=== PATIENT | male | born 1965 | race African-American/Black ===

== ENCOUNTER 2018-06-27 13:53 | Inpatient (IN) | payer OTHER ==
[2018-06-27 18:25] VITALS: BMI 26.5
--- NOTE | 2018-06-27 20:22 | HP ---
CIWA Score - CIWA Score Nausea/Vomitin-Mild Nausea/No Vomiting Muscle Tremors: 4-Moderate,w/Arms Extend Anxiety: 3 Agitation: 3 Paroxysmal Sweats: 1-Minimal Palms Moist Orientation: 2-Disoriented Date<2 days Tacttile Disturbances: 0-None Auditory Disturbances: 0-None Visual Disturbances: 0-None Headache: 2-Mild CIWA-Ar Total Score: 16 Admission ROS S - HPI Chief Complaint: Alcohol withdrawal symptoms Allergies/Adverse Reactions: Allergies Allergy/AdvReac Type Severity Reaction Status Date / Time No Known Drug Allergies Allergy Verified 02/22/14 17:26 History of Present Illness: 53 years old male with a long history of alcohol dependence is seeking admission to detox. Patient has been in previous detox, last at [facility]. He has medical history of hypertension, TB (treated), depression and anxiety. He denies suicide attempt or suicidal ideation at this time. Exam Limitations: No Limitations - Ebola screening Have you traveled outside of the country in the last 21 days: No Have you had contact with anyone from an Ebola affected area: No Do you have a fever: No - Review of Systems Constitutional: Chills, Loss of Appetite, Malaise, Changes in sleep EENT: reports: No Symptoms Reported Respiratory: reports: No Symptoms reported, Productive cough GI: reports: No Symptoms Reported : reports: No Symptoms Reported Musculoskeletal: reports: No Symptoms Reported Integumentary: reports: Dryness Neuro: reports: Tremors Endocrine: reports: No Symptoms Reported, Unexplained Weight Loss Psychiatric: reports: Anxious, Depressed Other Systems: Reviewed and Negative Patient History - Patient Medical History Hx Anemia: No Hx Asthma: No Hx Chronic Obstructive Pulmonary Disease (COPD): No Hx Cancer: No Hx Cardiac Disorders: No Hx Congestive Heart Failure: No Hx Hypertension: Yes (Not on medication) Hx Hypercholesterolemia: No Hx Pacemaker: No HX Cerebrovascular Accident: No Hx Seizures: No Hx Dementia: No Hx Diabetes: No Hx Gastrointestinal Disorders: No Hx Liver Disease: No Hx Genitourinary Disorders: No Hx Sexually Transmitted Disorders: No Hx Renal Disease (ESRD): No Hx Thyroid Disease: No Hx Human Immunodeficiency Virus (HIV): No Hx Hepatitis C: No Hx Depression: Yes (Not on medication) Hx Suicide Attempt: No (Denies suicidal ideation at this time) Hx Bipolar Disorder: No Hx Schizophrenia: No Other Medical History: Anxiety - Not on medication - Patient Surgical History Past Surgical History: Yes Hx Neurologic Surgery: No Hx Cataract Extraction: No Hx Cardiac Surgery: No Hx Lung Surgery: No Hx Abdominal Surgery: No Hx Appendectomy: No Hx Cholecystectomy: No Hx Genitourinary Surgery: No Hx Section: No Hx Orthopedic Surgery: No Other Surgical History: Umbilical hernia repair-2013 Anesthesia Reaction: No - PPD History Previous Implant?: Yes (INH and B16 for TB) Documented Results: Positive w/proof PPD to be Administered?: No - Reproductive History Patient is a Female of Child Bearing Age (11 -55 yrs old): No (Male) - Smoking Cessation Smoking history: Current every day smoker Have you smoked in the past 12 months: Yes Aproximately how many cigarettes per day: 20 Hx Chewing Tobacco Use: No Initiated information on smoking cessation: Yes 'Breaking Loose' booklet given: 06/27/18 - Substance & Tx. History Hx Alcohol Use: Yes Hx Substance Use: Yes Substance Use Type: Alcohol, Cocaine Hx Substance Use Treatment: Yes ([facility] - Substances Abused Alcohol Route: Oral Frequency: Daily Amount used: liquor- 4 pints, beer- 1 six pack Age of first use: 13 Date of Last Use: 06/27/18 Crack Route: Smoking Frequency: Daily Amount used: $80 worth Age of first use: 16 Date of Last Use: 06/26/18 Family Disease History - Family Disease History Family History: Denies Admission Physical Exam [facility] - Vital Signs Vital Signs: Vital Signs - 24 hr 06/27/18 18:11 Temperature 96.9 F L Pulse Rate 72 Respiratory 18 Rate Blood Pressure 150/100 - Physical General Appearance: Yes: Moderate Distress, Tremorous, Irritable, Sweating, Anxious HEENTM: Yes: EOMI, Normal ENT Inspection, Normocephalic, Normal Voice, BINH Respiratory: Yes: Lungs Clear, Normal Breath Sounds, No Respiratory Distress Neck: Yes: Supple Breast: Yes: Breast Exam Deferred Cardiology: Yes: Regular Rhythm, Regular Rate Abdominal: Yes: Normal Bowel Sounds Genitourinary: Yes: Within Normal Limits Back: Yes: Normal Inspection Musculoskeletal: Yes: Within Normal Limits Extremities: Yes: Tremors Neurological: Yes: psychiatric arnp II-XII NML intact, Alert, Normal Mood/Affect Integumentary: Yes: Warm Lymphatic: Yes: Within Normal Limits - Diagnostic (1) Alcohol dependence with uncomplicated withdrawal Current Visit: Yes Status: Chronic (2) Hypertension Current Visit: Yes Status: Chronic Qualifiers: Hypertension type: essential hypertension Qualified Code(s): I10 - Essential (primary) hypertension (3) Depression Current Visit: Yes Status: Chronic Qualifiers: Depression Type: unspecified Qualified Code(s): F32.9 - Major depressive disorder, single episode, unspecified (4) Anxiety Current Visit: Yes Status: Chronic (5) Cocaine dependence Current Visit: Yes Status: Chronic Qualifiers: Substance use status: uncomplicated Qualified Code(s): F14.20 - Cocaine dependence, uncomplicated (6) Nicotine dependence Current Visit: Yes Status: Chronic Qualifiers: Nicotine product type: cigarettes Substance use status: uncomplicated Qualified Code(s): F17.210 - Nicotine dependence, cigarettes, uncomplicated (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
[2018-06-27] MEDS ORDERED: NICOTINE POLACRILEX 2 MG GUM BC PRN (20:30)
[2018-06-27] MEDS ORDERED: MENTHOL/PHENOL 1 EACH UD MM PRN (20:30)
[2018-06-27] MEDS ORDERED: ACETAMINOPHEN 325 MG TABLET (FP) PO PRN (20:30)
[2018-06-27] MEDS ORDERED: MAG HYDROX/AL HYDROX/SIMETH 30 ML UNIT-DOSE CUP PO PRN (20:30)
[2018-06-27] MEDS ORDERED: P-EPHED 60MG/TRIPROLIDI 2.5MG TABLET PO PRN (20:30)
[2018-06-27] MEDS ORDERED: guaiFENesin/D-METHORPHAN HB 10 ML UNIT-DOSE CUPS PO PRN (20:30)
[2018-06-27] MEDS ORDERED: LOPERAMIDE HCL 2 MG CAPSULE PO PRN (20:30)
[2018-06-27] MEDS ORDERED: MAGNESIUM CITRATE 300 ML BOTTLE PO PRN (20:30)
[2018-06-27] MEDS ORDERED: chlordiazePOXIDE HCL 25 MG CAPSULE PO PRN (20:30)
[2018-06-27] MEDS ORDERED: MAGNESIUM HYDROX 2400MG/30ML ORAL SUSPENSION 30 ML CUP PO PRN (20:30)
[2018-06-27] MEDS ORDERED: IBUPROFEN 400 MG TABLET (FP) PO PRN (20:30)
[2018-06-27] MEDS: amLODIPine BESYLATE 10 MG TABLET (FP) PO SCH (21:24)
[2018-06-27] MEDS: THIAMINE HCL 100 MG TABLET (FP) PO SCH (21:25)
[2018-06-27] MEDS ORDERED: MELATONIN 5 MG TABLETS PO PRN (22:00)
[2018-06-27] MEDS: chlordiazePOXIDE HCL 25 MG CAPSULE PO SCH (22:23)
[2018-06-27 23:54] LABS: URINE APPEARANCE CLEAR; URINE BILIRUBIN NEGATIVE (<2.0 mg/dL); URINE COLOR LTYELLOW; URINE GLUCOSE (UA) 1+ (NEGATIVE); URINE KETONE NEGATIVE (NEGATIVE); URINE LEUK ESTERASE NEGATIVE (NEGATIVE); URINE NITRITE NEGATIVE (NEGATIVE); URINE PROTEIN NEGATIVE (NEGATIVE); URINE UROBILINOGEN NEGATIVE mg/dL (0.2-1.0)
[2018-06-28] MEDS: chlordiazePOXIDE HCL 25 MG CAPSULE PO SCH ×4 (06:18→22:48)
[2018-06-28 10:26] LABS: HEMATOCRIT 44.4 % (35.4-49); HEMOGLOBIN 14.2 GM/dL (11.7-16.9); MCH 30.1 pg (25.7-33.7); MEAN CELL VOLUME 94.1 fl (80-96); MEAN PLT VOLUME 8.4 fl (7.5-11.1); PLATELET COUNT 199 K/MM3 (134-434); RBC 4.72 M/mm3 (4.00-5.60); RDW 13.4 % (11.9-15.9); WHITE BLOOD COUNT 4.3 K/mm3 (4.0-10.0)
[2018-06-28] MEDS: PRENATAL VITAMINS W/ FOLIC ACID TABLET (FP) PO SCH (10:45)
[2018-06-28] MEDS: amLODIPine BESYLATE 10 MG TABLET (FP) PO SCH (10:45)
[2018-06-28] MEDS: NICOTINE 14 MG/24 HOURS TOPICAL PATCH TD SCH (10:45)
[2018-06-28 10:49] LABS: ALK PHOS 62 U/L (45-117); ANION GAP 7 MMOL/L (8-16); BILIRUBIN,TOTAL 0.4 mg/dL (0.2-1); BLOOD UREA NITROGEN 16 mg/dL (7-18); CALCIUM 8.5 mg/dL (8.5-10.1); CHLORIDE 110 mmol/L (98-107); CO2 25 mmol/L (21-32); GLUCOSE,RANDOM 126 mg/dL (74-106); POTASSIUM 3.7 mmol/L (3.5-5.1); SGOT/AST 22 U/L (15-37); SGPT/ALT 54 U/L (13-61); SODIUM 142 mmol/L (136-145); TOT PROT 6.5 g/dl (6.4-8.2)
--- NOTE | 2018-06-28 13:00 | EKG ---
Test Reason : Blood Pressure : / mmHG Vent. Rate : 062 BPM Atrial Rate : 062 BPM P-R Int : 146 ms QRS Dur : 076 ms QT Int : 414 ms P-R-T Axes : 055 037 015 degrees QTc Int : 420 ms NORMAL SINUS RHYTHM NORMAL ECG Confirmed by MD CHRISTIANO, DAVE ([id number]) on 06/28/2018 12:59:57 PM Referred By: Confirmed By:DAVE ALVARADO MD
--- NOTE | 2018-06-28 13:15 | PN ---
[facility] CIWA - CIWA Score Nausea/Vomitin Muscle Tremors: 4-Moderate,w/Arms Extend Anxiety: 4-Mod. Anxious/Guarded Agitation: 3 Paroxysmal Sweats: 3 Orientation: 0-Oriented Tacttile Disturbances: 0-None Auditory Disturbances: 0-None Visual Disturbances: 0-None Headache: 0-None Present CIWA-Ar Total Score: 17 S Progress Note (SOAP) Subjective: Tremor, chills, sweating, interrupted sleep Objective: 06/28/18 13:10 Last Vital Signs Temp Pulse Resp BP Pulse Ox 98.4 F 55 L 18 128/71 06/28/18 09:42 06/28/18 09:42 06/28/18 09:42 06/28/18 09:42 Laboratory Tests 06/27/18 06/28/18 06/28/18 22:22 07:30 07:30 WBC 4.3 RBC 4.72 Hgb 14.2 Hct 44.4 MCV 94.1 MCH 30.1 MCHC 32.0 RDW 13.4 Plt Count 199 MPV 8.4 Sodium Potassium Chloride Carbon Dioxide Anion Gap BUN Creatinine Creat Clearance w eGFR Random Glucose Calcium Total Bilirubin AST ALT Alkaline Phosphatase Total Protein Albumin Urine Color Ltyellow Urine Appearance Clear Urine pH 5.0 Ur Specific [place] 1.018 Urine Protein Negative Urine Glucose (UA) 1+ H Urine Ketones Negative Urine Blood Negative Urine Nitrite Negative Urine Bilirubin Negative Urine Urobilinogen Negative Ur Leukocyte Esterase Negative RPR Titer HIV 1&2 Antibody Screen Negative HIV P24 Antigen Negative 06/28/18 06/28/18 07:30 07:30 WBC RBC Hgb Hct MCV MCH MCHC RDW Plt Count MPV Sodium 142 Potassium 3.7 Chloride 110 H Carbon Dioxide 25 Anion Gap 7 L BUN 16 Creatinine 1.0 Creat Clearance w eGFR > 60 Random Glucose 126 H Calcium 8.5 Total Bilirubin 0.4 AST 22 ALT 54 Alkaline Phosphatase 62 Total Protein 6.5 Albumin 3.0 L Urine Color Urine Appearance Urine pH Ur Specific [place] Urine Protein Urine Glucose (UA) Urine Ketones Urine Blood Urine Nitrite Urine Bilirubin Urine Urobilinogen Ur Leukocyte Esterase RPR Titer Nonreactive HIV 1&2 Antibody Screen HIV P24 Antigen Labs reviewed: serum glucose 126, UA 1+ glucose Assessment: 06/28/18 13:13 Withdrawal symptoms Noted with glycosuria and hyperglycemia Plan: Continue detox Glycosuria: encouraged PO water intake, repeat UA Hyperglycemia: repeat fasting glucose
[2018-06-28] MEDS: THIAMINE HCL 100 MG TABLET (FP) PO SCH (22:48)
[2018-06-29] MEDS: chlordiazePOXIDE HCL 25 MG CAPSULE PO SCH ×2 (05:57→10:43)
[2018-06-29 10:30] VITALS: BP 126/74; PULSE 70; TEMP 98.9
[2018-06-29] MEDS: NICOTINE 14 MG/24 HOURS TOPICAL PATCH TD SCH (10:43)
[2018-06-29] MEDS: amLODIPine BESYLATE 10 MG TABLET (FP) PO SCH (10:43)
[2018-06-29] MEDS: PRENATAL VITAMINS W/ FOLIC ACID TABLET (FP) PO SCH (10:43)
--- NOTE | 2018-06-29 11:21 | DS ---
[facility] Detox Discharge Summary Admission Date: 06/27/18 Discharge Date: 06/29/18 - History Present History: Alcohol Dependence - Physical Exam Results Vital Signs: Vital Signs Temperature 98.9 F 06/29/18 10:00 Pulse Rate 70 06/29/18 10:00 Respiratory Rate 18 06/29/18 10:00 Blood Pressure 126/74 06/29/18 10:00 O2 Sat by Pulse Oximetry (%) Pertinent Admission Physical Exam Findings: PATIENT REQUESTED TO SIGN OUT AMA. PATIENT ALERT AND ORIENTED X 3. SKIN WARM AND WITH BEADS OF SWEAT OF FOREHEAD. AMB AD STEPHANI, IRRITABLE AND PACING ON UNIT. PATIENT ENCOURAGED TO COMPLETE DETOX BUT REFUSED, PATIENT STATED " I HAVE BEEN HERE TOO LONG." PATIENT DENIES SI/HI AND EXPLAINED RISK FACTORS OF RELAPSE AND WITH SIGNING OUT. PATIENT ENCOURAGED TO ATTEND AA AND GO TO ER IF WITHDRAWAL SX OCCUR. - Medication Discharge Medications: Ambulatory Orders Amlodipine Besylate [Norvasc -] 10 mg PO DAILY 06/27/18 - AMA Did Patient Leave Against Medical Advice: Yes
[2018-06-29] MEDS ORDERED: chlordiazePOXIDE 5 MG CAPSULE PO SCH (23:00)
[2018-06-30] MEDS ORDERED: chlordiazePOXIDE HCL 10 MG CAPSULE PO SCH (23:00)
== END 2018-06-29 10:39 | disposition left against medical advice (07) | DRG 770 ==
LOC: YASAS 13:53 → Y3N 17:28
PROC: HZ2ZZZZ Detoxification Services for Substance Abuse Treatment (ICD-10-PCS; principal; 2018-06-27)
DX: F10.230 Alcohol dependence with withdrawal, uncomplicated (principal); F14.20 Cocaine dependence, uncomplicated; F17.210 Nicotine dependence, cigarettes, uncomplicated; F41.9 Anxiety disorder, unspecified; F32.9 Major depressive disorder, single episode, unspecified; I10 Essential (primary) hypertension; R81 Glycosuria; R73.9 Hyperglycemia, unspecified; R76.11 Nonspecific reaction to tuberculin skin test without active tuberculosis
CPT/HCPCS: 36415; 71046-TC-FY; 80053; 81003; 85027; 86593; 87389; 93005; 93010

== ENCOUNTER 2018-08-01 23:02 | Inpatient (IN) | payer OTHER ==
[~2018-08-01 23:02] MED LIST: MELATONIN 5 MG TABLETS PO PRN
--- NOTE | 2018-08-01 23:33 | HP ---
CIWA Score Nausea/Vomitin-No Nausea/No Vomiting Muscle Tremors: 4-Moderate,w/Arms Extend Anxiety: 4-Mod. Anxious/Guarded Agitation: 4-Moderately Restless Paroxysmal Sweats: No Perspiration Orientation: 3-Disoriented Date>2 days Tacttile Disturbances: 0-None Auditory Disturbances: 0-None Visual Disturbances: 0-None Headache: 0-None Present CIWA-Ar Total Score: 15 - Admission Criteria [facility]ASAS Guidelines: Admission for Medically Managed Detox: Requires at least one of the followin. CIWA greater than 12 2. Seizures within the past 24 hours 3. Delirium tremens within the past 24 hours 4. Hallucinations within the past 24 hours 5. Acute intervention needed for co occurring medical disorder 6. Acute intervention needed for co occurring psychiatric disorder 7. Severe withdrawal that cannot be handled at a lower level of care (continued vomiting, continued diarrhea, abnormal vital signs) requiring intravenous medication and/or fluids 8. Patient presents the following: CIWA greater than 12 Admission Criteria Met: Admission criteria met Admission ROS [facility] - [facility] Chief Complaint: SEEKING DETOX FOR C/O WITHDRAWAL SX'S FROM ALCOHOL Allergies/Adverse Reactions: Allergies Allergy/AdvReac Type Severity Reaction Status Date / Time No Known Drug Allergies Allergy Verified 08/01/18 23:33 History of Present Illness: 53 Y.O. MALE WITH HX/O ALCOHOLISM HERE FOR DETOX. CLIENT WAS REFERRED BY [facility] AFTER PRESENTING THERE WITH INTOXICATION. NOW WITH C/O WITHDRAWAL SX' S. CIWA 15. CLIENT IS KNOWN TO THIS PROGRAM. LAST HERE 06/29/2018. HE HAS A HX/ O SIGNING OUT THE LAST 3 ADMISSIONS AFTER A 48 HOUR STAY. D/W CLIENT ABOUT COMPLIANCE AND ADHERENCE. CLIENT VOICED THAT HE NEEDS THE HELP AND WILL COMPLETE HIS TXMENT. REPORTS LONGEST CLEAN TIME 9 MONTHS. DENIES ANY CLEAN TIME IN HE PAST YEAR. DENIES HX/O SEIZURES, SI/HI, AVH. PMHX- HTN, HX/O + PPD NEG CXR NOTED ON FILE DONE 06/2018 PSYCH- DENIES/ [facility] Exam Limitations: No Limitations - Ebola screening Have you traveled outside of the country in the last 21 days: No Have you had contact with anyone from an Ebola affected area: No Have you been sick,other than usual withdrawal symptoms: No Do you have a fever: No - Review of Systems Constitutional: No Symptoms Reported EENT: reports: No Symptoms Reported Respiratory: reports: No Symptoms reported Cardiac: reports: No Symptoms Reported GI: reports: Poor Fluid Intake : reports: No Symptoms Reported Musculoskeletal: reports: No Symptoms Reported Integumentary: reports: No Symptoms Reported Endocrine: reports: No Symptoms Reported Hematology: reports: No Symptoms Reported Psychiatric: reports: Agitated (IRRITABLE), Anxious Other Systems: Reviewed and Negative Patient History - Patient Medical History Hx Anemia: No Hx Asthma: No Hx Chronic Obstructive Pulmonary Disease (COPD): No Hx Cancer: No Hx Cardiac Disorders: No Hx Congestive Heart Failure: No Hx Hypertension: Yes (NORVASC) Hx Hypercholesterolemia: No Hx Pacemaker: No HX Cerebrovascular Accident: No Hx Seizures: No Hx Dementia: No Hx Diabetes: No Hx Gastrointestinal Disorders: No Hx Liver Disease: No Hx Genitourinary Disorders: No Hx Sexually Transmitted Disorders: No Hx Renal Disease (ESRD): No Hx Thyroid Disease: No Hx Human Immunodeficiency Virus (HIV): No Hx Hepatitis C: No Hx Depression: No Hx Suicide Attempt: No Hx Bipolar Disorder: No Hx Schizophrenia: No Other Medical History: DENIES - Patient Surgical History Past Surgical History: Yes Hx Neurologic Surgery: No Hx Cataract Extraction: No Hx Cardiac Surgery: No Hx Lung Surgery: No Hx Breast Surgery: No Hx Breast Biopsy: No Hx Abdominal Surgery: No Hx Appendectomy: No Hx Cholecystectomy: No Hx Genitourinary Surgery: No Hx Section: No Hx Orthopedic Surgery: No Other Surgical History: Umbilical hernia repair-2013 Anesthesia Reaction: No - PPD History Previous Implant?: Yes Documented Results: Positive w/o proof Implanted On Prior [facility] Admission?: No Results: CXR 06/2018 PPD to be Administered?: No - Smoking Cessation Smoking history: Current every day smoker Have you smoked in the past 12 months: Yes Aproximately how many cigarettes per day: 20 Cigars Per Day: 0 Hx Chewing Tobacco Use: No Initiated information on smoking cessation: Yes 'Breaking Loose' booklet given: 08/01/18 - Substance & Tx. History Hx Alcohol Use: Yes Hx Substance Use: Yes Substance Use Type: Alcohol Hx Substance Use Treatment: Yes ([facility]) - Substances Abused VODKA Route: Oral Frequency: Daily Amount used: 4 PINTS Age of first use: 13 Date of Last Use: 08/01/18 Family Disease History - Family Disease History Family History: Denies Admission Physical Exam [facility] - Physical General Appearance: Yes: Mild Distress, Alcohol on Breath, Tremorous, Irritable , Anxious, Other (DISHELEVD AND MALODUROUS) HEENTM: Yes: EOMI, Normocephalic, BINH, Pharynx Normal Respiratory: Yes: Chest Non-Tender, Lungs Clear, Normal Breath Sounds, No Respiratory Distress, No Accessory Muscle Use Neck: Yes: No masses,lesions,Nodules, Supple, Trachea in good position Breast: Yes: Breast Exam Deferred Cardiology: Yes: Regular Rhythm, Regular Rate, S1, S2 Abdominal: Yes: Normal Bowel Sounds, Non Tender, Soft, Protuberent Genitourinary: Yes: Within Normal Limits (NO C/O) Back: Yes: Normal Inspection Musculoskeletal: Yes: full range of Motion, Gait Steady Extremities: Yes: Normal Range of Motion, Non-Tender, Tremors Neurological: Yes: Alert, Motor Strength 5/5 Integumentary: Yes: Dry, Warm Lymphatic: Yes: Within Normal Limits - Diagnostic (1) History of positive PPD Current Visit: Yes Status: Chronic (2) Substance induced mood disorder Current Visit: Yes Status: Suspected (3) Alcohol dependence with uncomplicated withdrawal Current Visit: Yes Status: Acute (4) Hypertension Current Visit: Yes Status: Chronic Qualifiers: Hypertension type: essential hypertension Qualified Code(s): I10 - Essential (primary) hypertension (5) Nicotine dependence Current Visit: Yes Status: Chronic Qualifiers: Nicotine product type: cigarettes Substance use status: uncomplicated Qualified Code(s): F17.210 - Nicotine dependence, cigarettes, uncomplicated (6) At risk for dehydration due to poor fluid intake Current Visit: Yes Status: Acute Cleared for Admission [facility] - Detox or Rehab [facility] Level of Care: Medically Managed Detox Regimen/Protocol: Librium Claeared for Rehab Admission: No [facility] Breath Alcohol Content Breath Alcohol Content: 0.016
[2018-08-01] MEDS ORDERED: ACETAMINOPHEN 325 MG TABLET (FP) PO PRN (23:40)
[2018-08-01] MEDS ORDERED: guaiFENesin/D-METHORPHAN HB 10 ML UNIT-DOSE CUPS PO PRN (23:40)
[2018-08-01] MEDS ORDERED: P-EPHED 60MG/TRIPROLIDI 2.5MG TABLET PO PRN (23:40)
[2018-08-01] MEDS ORDERED: MAG HYDROX/AL HYDROX/SIMETH 30 ML UNIT-DOSE CUP PO PRN (23:40)
[2018-08-01] MEDS ORDERED: MENTHOL/PHENOL 1 EACH UD MM PRN (23:40)
[2018-08-01] MEDS ORDERED: MAGNESIUM CITRATE 300 ML BOTTLE PO PRN (23:40)
[2018-08-01] MEDS ORDERED: MAGNESIUM HYDROX 2400MG/30ML ORAL SUSPENSION 30 ML CUP PO PRN (23:40)
[2018-08-01] MEDS ORDERED: IBUPROFEN 400 MG TABLET (FP) PO PRN (23:40)
[2018-08-01] MEDS ORDERED: hydrOXYzine PAMOATE 50 MG CAPSULE (FP) PO PRN (23:40)
[2018-08-01] MEDS ORDERED: LOPERAMIDE HCL 2 MG CAPSULE PO PRN (23:40)
[2018-08-01] MEDS ORDERED: NICOTINE POLACRILEX 2 MG GUM BUC PRN (23:40)
[2018-08-01] MEDS ORDERED: chlordiazePOXIDE HCL 25 MG CAPSULE PO PRN (23:40)
[2018-08-01 23:45] VITALS: BMI 26.5
[2018-08-02] MEDS: chlordiazePOXIDE HCL 25 MG CAPSULE PO SCH ×5 (01:16→22:45)
[2018-08-02] MEDS ORDERED: cloNIDine HCL 0.1 MG TABLET PO ONE (01:34)
[2018-08-02 10:19] LABS: HEMATOCRIT 39.9 % (35.4-49); HEMOGLOBIN 12.9 GM/dL (11.7-16.9); MCH 30.1 pg (25.7-33.7); MCHC 32.3 g/dl (32.0-35.9); PLATELET COUNT 202 K/MM3 (134-434); RBC 4.29 M/mm3 (4.00-5.60); RDW 13.8 % (11.9-15.9); WHITE BLOOD COUNT 5.8 K/mm3 (4.0-10.0)
--- NOTE | 2018-08-02 10:22 | PN ---
S CIWA - CIWA Score Nausea/Vomitin-No Nausea/No Vomiting Muscle Tremors: 4-Moderate,w/Arms Extend Anxiety: 3 Agitation: 4-Moderately Restless Paroxysmal Sweats: 3 Orientation: 0-Oriented Tacttile Disturbances: 0-None Auditory Disturbances: 0-None Visual Disturbances: 0-None Headache: 0-None Present CIWA-Ar Total Score: 14 [facility] Progress Note (SOAP) Subjective: restless body aches agitation sweats interrupted sleep Objective: 08/02/18 10:21 Vital Signs Temperature 98.1 F 08/02/18 09:21 Pulse Rate 65 08/02/18 09:21 Respiratory Rate 18 08/02/18 09:21 Blood Pressure 140/89 08/02/18 09:21 O2 Sat by Pulse Oximetry (%) labs pending aaox3 ambulating no acute distress Assessment: 08/02/18 10:21 withdrawal sx Plan: continue detox increase fluids labs pending
[2018-08-02] MEDS: amLODIPine BESYLATE 10 MG TABLET (FP) PO SCH (10:28)
[2018-08-02] MEDS: PRENATAL VITAMINS W/ FOLIC ACID TABLET (FP) PO SCH (10:28)
[2018-08-02] MEDS: NICOTINE 21 MG/24 HOURS TOPICAL PATCH TD SCH (10:28)
[2018-08-02 10:40] LABS: ALBUMIN 2.7 g/dl (3.4-5.0); ALK PHOS 77 U/L (45-117); ANION GAP 9 MMOL/L (8-16); BILIRUBIN,TOTAL 0.5 mg/dL (0.2-1); BLOOD UREA NITROGEN 15 mg/dL (7-18); CALCIUM 8.3 mg/dL (8.5-10.1); CHLORIDE 104 mmol/L (98-107); CO2 28 mmol/L (21-32); CREATININE 1.1 mg/dL (0.55-1.3); GLUCOSE,RANDOM 155 mg/dL (74-106); POTASSIUM 3.5 mmol/L (3.5-5.1); SGOT/AST 28 U/L (15-37); SGPT/ALT 51 U/L (13-61); SODIUM 141 mmol/L (136-145); TOT PROT 6.2 g/dl (6.4-8.2)
[2018-08-02 11:00] LABS: URINE APPEARANCE CLEAR; URINE BILIRUBIN NEGATIVE (<2.0 mg/dL); URINE COLOR LTYELLOW; URINE GLUCOSE (UA) NEGATIVE (NEGATIVE); URINE KETONE NEGATIVE (NEGATIVE); URINE LEUK ESTERASE NEGATIVE (NEGATIVE); URINE NITRITE NEGATIVE (NEGATIVE); URINE PROTEIN NEGATIVE (NEGATIVE); URINE UROBILINOGEN NEGATIVE mg/dL (0.2-1.0)
[2018-08-02] MEDS: THIAMINE HCL 100 MG TABLET (FP) PO SCH (22:46)
[2018-08-03] MEDS: chlordiazePOXIDE HCL 25 MG CAPSULE PO SCH ×3 (05:18→18:22)
[2018-08-03] MEDS: amLODIPine BESYLATE 10 MG TABLET (FP) PO SCH (10:24)
[2018-08-03] MEDS: PRENATAL VITAMINS W/ FOLIC ACID TABLET (FP) PO SCH (10:24)
[2018-08-03] MEDS: NICOTINE 21 MG/24 HOURS TOPICAL PATCH TD SCH (10:26)
--- NOTE | 2018-08-03 11:26 | PN ---
[facility] CIWA - CIWA Score Nausea/Vomitin-Mild Nausea/No Vomiting Muscle Tremors: 3 Anxiety: 2 Agitation: 2 Paroxysmal Sweats: 1-Minimal Palms Moist Orientation: 0-Oriented Tacttile Disturbances: 1-Very Mild Itch/Numbness Auditory Disturbances: 0-None Visual Disturbances: 0-None Headache: 1-Very Mild CIWA-Ar Total Score: 11 S Progress Note (SOAP) Subjective: one time bgm before breakfast as per paraffiner requested tremor sweat anxiety trouble sleep at night Objective: 08/03/18 11:28 Vital Signs Temperature 98.1 F 08/03/18 09:12 Pulse Rate 71 08/03/18 09:12 Respiratory Rate 18 08/03/18 09:12 Blood Pressure 130/85 08/03/18 09:12 O2 Sat by Pulse Oximetry (%) Laboratory Last Values WBC 5.8 K/mm3 (4.0-10.0) 08/02/18 07:00 RBC 4.29 M/mm3 (4.00-5.60) 08/02/18 07:00 Hgb 12.9 GM/dL (11.7-16.9) 08/02/18 07:00 Hct 39.9 % (35.4-49) 08/02/18 07:00 MCV 93.0 fl (80-96) 08/02/18 07:00 MCH 30.1 pg (25.7-33.7) 08/02/18 07:00 MCHC 32.3 g/dl (32.0-35.9) 08/02/18 07:00 RDW 13.8 % (11.9-15.9) 08/02/18 07:00 Plt Count 202 K/MM3 (134-434) 08/02/18 07:00 MPV 8.0 fl (7.5-11.1) 08/02/18 07:00 Sodium 141 mmol/L (136-145) 08/02/18 07:00 Potassium 3.5 mmol/L (3.5-5.1) 08/02/18 07:00 Chloride 104 mmol/L (98-107) 08/02/18 07:00 Carbon Dioxide 28 mmol/L (21-32) 08/02/18 07:00 Anion Gap 9 MMOL/L (8-16) 08/02/18 07:00 BUN 15 mg/dL (7-18) 08/02/18 07:00 Creatinine 1.1 mg/dL (0.55-1.3) 08/02/18 07:00 Creat Clearance w eGFR > 60 (>60) 08/02/18 07:00 Random Glucose 155 mg/dL (74-106) H 08/02/18 07:00 Calcium 8.3 mg/dL (8.5-10.1) L 08/02/18 07:00 Total Bilirubin 0.5 mg/dL (0.2-1) 08/02/18 07:00 AST 28 U/L (15-37) 08/02/18 07:00 ALT 51 U/L (13-61) 08/02/18 07:00 Alkaline Phosphatase 77 U/L (45-117) 08/02/18 07:00 Total Protein 6.2 g/dl (6.4-8.2) L 08/02/18 07:00 Albumin 2.7 g/dl (3.4-5.0) L 08/02/18 07:00 Urine Color Ltyellow 08/02/18 07:00 Urine Appearance Clear 08/02/18 07:00 Urine pH 6.0 (5.0-8.0) 08/02/18 07:00 Ur Specific [place] 1.013 (1.010-1.035) 08/02/18 07:00 Urine Protein Negative (NEGATIVE) 08/02/18 07:00 Urine Glucose (UA) Negative (NEGATIVE) 08/02/18 07:00 Urine Ketones Negative (NEGATIVE) 08/02/18 07:00 Urine Blood Negative (NEGATIVE) 08/02/18 07:00 Urine Nitrite Negative (NEGATIVE) 08/02/18 07:00 Urine Bilirubin Negative (<2.0 mg/dL) 08/02/18 07:00 Urine Urobilinogen Negative mg/dL (0.2-1.0) 08/02/18 07:00 Ur Leukocyte Esterase Negative (NEGATIVE) 08/02/18 07:00 RPR Titer Nonreactive (NONREACTIVE) 08/02/18 07:00 HIV 1&2 Antibody Screen Negative 08/02/18 07:00 HIV P24 Antigen Negative 08/02/18 07:00 lab noted bgm x 1 at 11/29/18 A1C Assessment: 11/28/18 11:29 withdrawal sx Plan: continue detox
[2018-08-03] MEDS: chlordiazePOXIDE 5 MG CAPSULE PO SCH (23:17)
[2018-08-03] MEDS: THIAMINE HCL 100 MG TABLET (FP) PO SCH (23:17)
[2018-08-04] MEDS: chlordiazePOXIDE 5 MG CAPSULE PO SCH ×2 (06:59→08:52)
--- NOTE | 2018-08-04 08:46 | DS ---
[facility] Detox Discharge Summary Admission Date: 08/01/18 Discharge Date: 08/04/18 - History Present History: Alcohol Dependence Additional Comments: 53 years old male admitted on 08/01/18 for alcohol withdrawal sx patient stated that he is feeling better [facility] withdrawal sx alert oriented x 3 no acute distress denies suicidal denies homocidal no self destructive behavior patient had breakfast and wants to visit his primary care physician for hypertension follow up - Physical Exam Results Vital Signs: Vital Signs Temperature 97.7 F 08/04/18 07:01 Pulse Rate 55 L 08/04/18 07:01 Respiratory Rate 18 08/04/18 07:01 Blood Pressure 143/92 08/04/18 07:01 O2 Sat by Pulse Oximetry (%) Pertinent Admission Physical Exam Findings: alcohol withdrawal sx Vital Signs Temperature 95.5 F L 08/04/18 09:53 Pulse Rate 90 08/04/18 09:53 Respiratory Rate 18 08/04/18 09:53 Blood Pressure 134/103 H 08/04/18 09:53 O2 Sat by Pulse Oximetry (%) Laboratory Last Values WBC 5.8 K/mm3 (4.0-10.0) 08/02/18 07:00 RBC 4.29 M/mm3 (4.00-5.60) 08/02/18 07:00 Hgb 12.9 GM/dL (11.7-16.9) 08/02/18 07:00 Hct 39.9 % (35.4-49) 08/02/18 07:00 MCV 93.0 fl (80-96) 08/02/18 07:00 MCH 30.1 pg (25.7-33.7) 08/02/18 07:00 MCHC 32.3 g/dl (32.0-35.9) 08/02/18 07:00 RDW 13.8 % (11.9-15.9) 08/02/18 07:00 Plt Count 202 K/MM3 (134-434) 08/02/18 07:00 MPV 8.0 fl (7.5-11.1) 08/02/18 07:00 Sodium 141 mmol/L (136-145) 08/02/18 07:00 Potassium 3.5 mmol/L (3.5-5.1) 08/02/18 07:00 Chloride 104 mmol/L (98-107) 08/02/18 07:00 Carbon Dioxide 28 mmol/L (21-32) 08/02/18 07:00 Anion Gap 9 MMOL/L (8-16) 08/02/18 07:00 BUN 15 mg/dL (7-18) 08/02/18 07:00 Creatinine 1.1 mg/dL (0.55-1.3) 08/02/18 07:00 Creat Clearance w eGFR > 60 (>60) 08/02/18 07:00 POC Glucometer 129 UNITS (80-120) 08/04/18 06:55 Random Glucose 155 mg/dL (74-106) H 08/02/18 07:00 Calcium 8.3 mg/dL (8.5-10.1) L 08/02/18 07:00 Total Bilirubin 0.5 mg/dL (0.2-1) 08/02/18 07:00 AST 28 U/L (15-37) 08/02/18 07:00 ALT 51 U/L (13-61) 08/02/18 07:00 Alkaline Phosphatase 77 U/L (45-117) 08/02/18 07:00 Total Protein 6.2 g/dl (6.4-8.2) L 08/02/18 07:00 Albumin 2.7 g/dl (3.4-5.0) L 08/02/18 07:00 Urine Color Ltyellow 08/02/18 07:00 Urine Appearance Clear 08/02/18 07:00 Urine pH 6.0 (5.0-8.0) 08/02/18 07:00 Ur Specific [place] 1.013 (1.010-1.035) 08/02/18 07:00 Urine Protein Negative (NEGATIVE) 08/02/18 07:00 Urine Glucose (UA) Negative (NEGATIVE) 08/02/18 07:00 Urine Ketones Negative (NEGATIVE) 08/02/18 07:00 Urine Blood Negative (NEGATIVE) 08/02/18 07:00 Urine Nitrite Negative (NEGATIVE) 08/02/18 07:00 Urine Bilirubin Negative (<2.0 mg/dL) 08/02/18 07:00 Urine Urobilinogen Negative mg/dL (0.2-1.0) 08/02/18 07:00 Ur Leukocyte Esterase Negative (NEGATIVE) 08/02/18 07:00 RPR Titer Nonreactive (NONREACTIVE) 08/02/18 07:00 HIV 1&2 Antibody Screen Negative 08/02/18 07:00 HIV P24 Antigen Negative 08/02/18 07:00 lab noted - Treatment Hospital Course: Detox Protocol Followed, Detoxed Safely, Responded well, Discharged Condition Good, Rehab Referral Accepted Patient has Accepted a Rehab Referral to: [facility] - Medication Discharge Medications: Ambulatory Orders Amlodipine Besylate [Norvasc -] 10 mg PO DAILY #14 tablet 08/04/18 - Diagnosis (1) Alcohol dependence with uncomplicated withdrawal Current Visit: Yes Status: Acute (2) Hypertension Current Visit: Yes Status: Chronic Qualifiers: Hypertension type: essential hypertension Qualified Code(s): I10 - Essential (primary) hypertension (3) Nicotine dependence Current Visit: Yes Status: Acute Qualifiers: Nicotine product type: cigarettes Substance use status: in withdrawal Qualified Code(s): F17.213 - Nicotine dependence, cigarettes, with withdrawal (4) Substance induced mood disorder Current Visit: Yes Status: Suspected - AMA Did Patient Leave Against Medical Advice: No
[2018-08-04] MEDS: amLODIPine BESYLATE 10 MG TABLET (FP) PO SCH (08:52)
[2018-08-04 09:54] VITALS: BP 134/103; PULSE 90; TEMP 95.5
[2018-08-04] MEDS: NICOTINE 21 MG/24 HOURS TOPICAL PATCH TD SCH (10:55)
[2018-08-04] MEDS: PRENATAL VITAMINS W/ FOLIC ACID TABLET (FP) PO SCH (10:56)
[2018-08-04] MEDS ORDERED: chlordiazePOXIDE HCL 10 MG CAPSULE PO SCH (23:00)
== END 2018-08-04 08:52 | disposition home or self-care (01) | DRG 774 ==
LOC: YASAS 23:02 → Y6N 23:56
PROC: HZ2ZZZZ Detoxification Services for Substance Abuse Treatment (ICD-10-PCS; principal; 2018-08-01)
DX: F10.230 Alcohol dependence with withdrawal, uncomplicated (principal); F14.20 Cocaine dependence, uncomplicated; F17.213 Nicotine dependence, cigarettes, with withdrawal; F19.24 Other psychoactive substance dependence with psychoactive substance-induced mood disorder; F32.9 Major depressive disorder, single episode, unspecified; I10 Essential (primary) hypertension; K42.9 Umbilical hernia without obstruction or gangrene; R76.11 Nonspecific reaction to tuberculin skin test without active tuberculosis; Z91.89 Other specified personal risk factors, not elsewhere classified
CPT/HCPCS: 36415; 71046-TC-FY; 80053; 81003; 82962; 83036; 85027; 86593; 87389; J0735

== ENCOUNTER 2018-10-11 11:07 | Inpatient (IN) | payer OTHER ==
[2018-10-11 12:43] VITALS: BMI 26.4
--- NOTE | 2018-10-11 15:41 | HP ---
CIWA Score Nausea/Vomitin-No Nausea/No Vomiting Muscle Tremors: 3 Anxiety: 3 Agitation: 2 Paroxysmal Sweats: 3 Orientation: 0-Oriented Tacttile Disturbances: 1-Very Mild Itch/Numbness Auditory Disturbances: 0-None Visual Disturbances: 0-None Headache: 0-None Present CIWA-Ar Total Score: 12 - Admission Criteria OASAS Guidelines: Admission for Medically Managed Detox: Requires at least one of the followin. CIWA greater than 12 2. Seizures within the past 24 hours 3. Delirium tremens within the past 24 hours 4. Hallucinations within the past 24 hours 5. Acute intervention needed for co occurring medical disorder 6. Acute intervention needed for co occurring psychiatric disorder 7. Severe withdrawal that cannot be handled at a lower level of care (continued vomiting, continued diarrhea, abnormal vital signs) requiring intravenous medication and/or fluids 8. Admission ROS S - HPI Chief Complaint: " I feel shaky from not drinking, am here for alcohol detox, the hospital send me here" Allergies/Adverse Reactions: Allergies Allergy/AdvReac Type Severity Reaction Status Date / Time No Known Drug Allergies Allergy Verified 10/11/18 14:36 History of Present Illness: 53 yo male with hx of chronic alcohol, nicotine and crack / cocaine dependence is here seeking ETOH detox. Reports prior treatment with multiple relapses. Last detox [facility] a month ago, reports was evaluated at [facility] yesterday d/t to alcohol intoxication, as per patient he was referred to [facility] today for alcohol detox. Reports non-adherence with HTN and DM II medications. Longest period of sobriety one year. Denies suicidal / homicidal ideation. Denies hx of seizures, reports frequent alcohol related blackouts with last episode about three weeks ago. Denies any legal troubles at this time. Exam Limitations: No Limitations - Ebola screening Have you traveled outside of the country in the last 21 days: No Have you had contact with anyone from an Ebola affected area: No Have you been sick,other than usual withdrawal symptoms: No Do you have a fever: No - Review of Systems Constitutional: Weakness, Other (feel shaky) EENT: reports: No Symptoms Reported Respiratory: reports: No Symptoms reported Cardiac: reports: No Symptoms Reported GI: reports: Poor Fluid Intake : reports: No Symptoms Reported Musculoskeletal: reports: No Symptoms Reported Integumentary: reports: No Symptoms Reported Neuro: reports: Tremors Endocrine: reports: See HPI, Increased Thirst Hematology: reports: No Symptoms Reported Psychiatric: reports: Anxious Other Systems: Reviewed and Negative Patient History - Patient Medical History Hx Anemia: No Hx Asthma: No Hx Chronic Obstructive Pulmonary Disease (COPD): No Hx Cancer: No Hx Cardiac Disorders: No Hx Congestive Heart Failure: No Hx Hypertension: Yes (ON NIFEDIPINE AND CLONIDINE) Hx Hypercholesterolemia: No Hx Pacemaker: No HX Cerebrovascular Accident: No Hx Seizures: No Hx Dementia: No Hx Diabetes: Yes (on ) Hx Gastrointestinal Disorders: No Hx Liver Disease: No Hx Genitourinary Disorders: No Hx Sexually Transmitted Disorders: No Hx Renal Disease (ESRD): No Hx Thyroid Disease: No Hx Human Immunodeficiency Virus (HIV): No (last tested one year ago ) Hx Hepatitis C: No Hx Depression: No Hx Suicide Attempt: No Hx Bipolar Disorder: No Hx Schizophrenia: No - Patient Surgical History Past Surgical History: Yes Hx Neurologic Surgery: No Hx Cataract Extraction: No Hx Cardiac Surgery: No Hx Lung Surgery: No Hx Breast Surgery: No Hx Breast Biopsy: No Hx Abdominal Surgery: No Hx Appendectomy: No Hx Cholecystectomy: No Hx Genitourinary Surgery: No Hx Section: No Hx Orthopedic Surgery: No Other Surgical History: Umbilical hernia repair-2013 Anesthesia Reaction: No - PPD History Previous Implant?: Yes Documented Results: Positive w/o proof Results: CXR 06/2018 - Smoking Cessation Smoking history: Current every day smoker Have you smoked in the past 12 months: Yes Aproximately how many cigarettes per day: 20 Cigars Per Day: 0 Hx Chewing Tobacco Use: No Initiated information on smoking cessation: Yes 'Breaking Loose' booklet given: 10/11/18 - Substance & Tx. History Hx Alcohol Use: Yes Hx Substance Use: Yes Substance Use Type: Alcohol, Cocaine Hx Substance Use Treatment: Yes ([facility] One month ago Sep 2018) - Substances Abused Alcohol Route: Oral Frequency: Daily Amount used: 3-4 PIN[place]ODKA Age of first use: 10 Date of Last Use: 10/10/18 Family Disease History - Family Disease History Family Disease History: CA: Father () Admission Physical Exam BHS - Vital Signs Vital Signs: Vital Signs - 24 hr 10/11/18 12:40 Temperature 99.2 F Pulse Rate 80 Respiratory 18 Rate Blood Pressure 152/96 - Physical General Appearance: Yes: Disheveled, Mild Distress, Thin, Anxious HEENTM: Yes: EOMI, Hearing grossly Normal, Normal ENT Inspection, Normocephalic , Normal Voice, BINH, Pharynx Normal, Tm's normal, Other (dry mucuos membranes) Respiratory: Yes: Within Normal Limits Neck: Yes: Within Normal Limits Breast: Yes: Breast Exam Deferred Cardiology: Yes: Regular Rhythm, Regular Rate Abdominal: Yes: Normal Bowel Sounds, Non Tender, Flat, Soft Genitourinary: Yes: Within Normal Limits Back: Yes: Normal Inspection Musculoskeletal: Yes: full range of Motion, Gait Steady, Pelvis Stable Extremities: Yes: Normal Capillary Refill, Normal Inspection, Normal Range of Motion 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, Fully Oriented, Alert, Motor Strength 5/5, Depressed Affect Integumentary: Yes: Dry, Warm, Other (palmar erythema) Lymphatic: Yes: Within Normal Limits - Diagnostic (1) Diabetes mellitus Current Visit: Yes Status: Chronic Qualifiers: Diabetes mellitus type: type 2 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: without oil heaterman use Diabetes mellitus complication status: without complication Qualified Code(s): E11.9 - Type 2 diabetes mellitus without complications (2) Alcohol dependence with uncomplicated withdrawal Current Visit: Yes Status: Acute (3) At risk for dehydration due to poor fluid intake Current Visit: Yes Status: Acute (4) Nicotine dependence Current Visit: Yes Status: Acute Qualifiers: Nicotine product type: cigarettes Substance use status: in withdrawal Qualified Code(s): F17.213 - Nicotine dependence, cigarettes, with withdrawal (5) Cocaine dependence Current Visit: Yes Status: Chronic Qualifiers: Substance use status: uncomplicated Qualified Code(s): F14.20 - Cocaine dependence, uncomplicated (6) History of positive PPD Current Visit: Yes Status: Chronic (7) Hypertension Current Visit: Yes Status: Chronic Qualifiers: Hypertension type: essential hypertension Qualified Code(s): I10 - Essential (primary) hypertension Cleared for Admission [facility] - Detox or Rehab [facility] Level of Care: Medically Managed Detox Regimen/Protocol: Librium [facility] Breath Alcohol Content Breath Alcohol Content: 0 Urine Drug Screen - Results Drug Screen Negative: No Urine Drug Screen Results: HAO-Cocaine, BZO-Benzodiazepines
[2018-10-11] MEDS ORDERED: chlordiazePOXIDE HCL 25 MG CAPSULE PO PRN (15:48)
[2018-10-11] MEDS ORDERED: LOPERAMIDE HCL 2 MG CAPSULE PO PRN (15:48)
[2018-10-11] MEDS ORDERED: IBUPROFEN 400 MG TABLET (FP) PO PRN (15:48)
[2018-10-11] MEDS ORDERED: MAGNESIUM CITRATE 300 ML BOTTLE PO PRN (15:48)
[2018-10-11] MEDS ORDERED: MAG HYDROX/AL HYDROX/SIMETH 30 ML UNIT-DOSE CUP PO PRN (15:48)
[2018-10-11] MEDS ORDERED: P-EPHED 60MG/TRIPROLIDI 2.5MG TABLET PO PRN (15:48)
[2018-10-11] MEDS ORDERED: ACETAMINOPHEN 325 MG TABLET (FP) PO PRN (15:48)
[2018-10-11] MEDS ORDERED: guaiFENesin/D-METHORPHAN HB 10 ML UNIT-DOSE CUPS PO PRN (15:48)
[2018-10-11] MEDS ORDERED: MENTHOL/PHENOL 1 EACH UD MM PRN (15:48)
[2018-10-11] MEDS ORDERED: MAGNESIUM HYDROX 2400MG/30ML ORAL SUSPENSION 30 ML CUP PO PRN (15:48)
[2018-10-11] MEDS ORDERED: NICOTINE POLACRILEX 2 MG GUM BC PRN (15:48)
[2018-10-11] MEDS: chlordiazePOXIDE HCL 25 MG CAPSULE PO SCH ×2 (17:27→22:08)
[2018-10-11] MEDS: MELATONIN 5 MG TABLETS PO PRN (22:08)
[2018-10-11] MEDS: THIAMINE HCL 100 MG TABLET (FP) PO SCH (22:08)
[2018-10-11] MEDS: cloNIDine HCL 0.1 MG TABLET PO SCH (22:08)
[2018-10-12] MEDS: chlordiazePOXIDE HCL 25 MG CAPSULE PO SCH ×4 (05:25→22:06)
[2018-10-12] MEDS: sitaGLIPtin PHOSPHATE 50 MG TABLET PO SCH (07:42)
[2018-10-12] MEDS: NIFEdipine E.R. 30 MG TABLET (FP) PO SCH (09:47)
[2018-10-12] MEDS: PRENATAL VITAMINS W/ FOLIC ACID TABLET (FP) PO SCH (09:47)
[2018-10-12] MEDS: cloNIDine HCL 0.1 MG TABLET PO SCH ×2 (09:47→22:06)
[2018-10-12] MEDS: NICOTINE 14 MG/24 HOURS TOPICAL PATCH TD SCH (09:48)
[2018-10-12 10:10] LABS: HEMOGLOBIN 13.4 GM/dL (11.7-16.9); MCH 33.4 pg (25.7-33.7); MCHC 35.3 g/dl (32.0-35.9); MEAN CELL VOLUME 94.7 fl (80-96); MEAN PLT VOLUME 8.2 fl (7.5-11.1); PLATELET COUNT 186 K/MM3 (134-434); RBC 4.01 M/mm3 (4.00-5.60); RDW 14.7 % (11.9-15.9); WHITE BLOOD COUNT 3.7 K/mm3 (4.0-10.0)
[2018-10-12 11:33] LABS: ALK PHOS 67 U/L (45-117); ANION GAP 8 MMOL/L (8-16); BILIRUBIN,TOTAL 0.5 mg/dL (0.2-1); BLOOD UREA NITROGEN 14 mg/dL (7-18); CALCIUM 8.7 mg/dL (8.5-10.1); CHLORIDE 104 mmol/L (98-107); CO2 28 mmol/L (21-32); CREATININE 0.9 mg/dL (0.55-1.3); GLUCOSE,RANDOM 131 mg/dL (74-106); POTASSIUM 3.3 mmol/L (3.5-5.1); SGOT/AST 20 U/L (15-37); SGPT/ALT 32 U/L (13-61); SODIUM 140 mmol/L (136-145); TOT PROT 6.5 g/dl (6.4-8.2)
--- NOTE | 2018-10-12 13:23 | PN ---
S CIWA - CIWA Score Nausea/Vomitin-Mild Nausea/No Vomiting Muscle Tremors: 4-Moderate,w/Arms Extend Anxiety: 2 Agitation: 3 Paroxysmal Sweats: 1-Minimal Palms Moist Orientation: 1-Uncertain about Date Tacttile Disturbances: 0-None Auditory Disturbances: 0-None Visual Disturbances: 0-None Headache: 1-Very Mild CIWA-Ar Total Score: 13 S Progress Note (SOAP) Subjective: tremor sweating restlessness anxiety trouble sleep at night Objective: 10/12/18 13:20 Vital Signs Temperature 98.6 F 10/12/18 13:14 Pulse Rate 63 10/12/18 13:14 Respiratory Rate 18 10/12/18 13:14 Blood Pressure 125/83 10/12/18 13:14 O2 Sat by Pulse Oximetry (%) Laboratory Last Values WBC 3.7 K/mm3 (4.0-10.0) L 10/12/18 07:00 RBC 4.01 M/mm3 (4.00-5.60) 10/12/18 07:00 Hgb 13.4 GM/dL (11.7-16.9) 10/12/18 07:00 Hct 38.0 % (35.4-49) 10/12/18 07:00 MCV 94.7 fl (80-96) 10/12/18 07:00 MCH 33.4 pg (25.7-33.7) D 10/12/18 07:00 MCHC 35.3 g/dl (32.0-35.9) 10/12/18 07:00 RDW 14.7 % (11.9-15.9) 10/12/18 07:00 Plt Count 186 K/MM3 (134-434) 10/12/18 07:00 MPV 8.2 fl (7.5-11.1) 10/12/18 07:00 Sodium 140 mmol/L (136-145) 10/12/18 07:00 Potassium 3.3 mmol/L (3.5-5.1) L 10/12/18 07:00 Chloride 104 mmol/L (98-107) 10/12/18 07:00 Carbon Dioxide 28 mmol/L (21-32) 10/12/18 07:00 Anion Gap 8 MMOL/L (8-16) 10/12/18 07:00 BUN 14 mg/dL (7-18) 10/12/18 07:00 Creatinine 0.9 mg/dL (0.55-1.3) 10/12/18 07:00 Creat Clearance w eGFR > 60 (>60) 10/12/18 07:00 POC Glucometer 110 UNITS (80-120) 10/12/18 05:24 Random Glucose 131 mg/dL (74-106) H 10/12/18 07:00 Calcium 8.7 mg/dL (8.5-10.1) 10/12/18 07:00 Total Bilirubin 0.5 mg/dL (0.2-1) 10/12/18 07:00 AST 20 U/L (15-37) 10/12/18 07:00 ALT 32 U/L (13-61) 10/12/18 07:00 Alkaline Phosphatase 67 U/L (45-117) 10/12/18 07:00 Total Protein 6.5 g/dl (6.4-8.2) 10/12/18 07:00 Albumin 3.0 g/dl (3.4-5.0) L 10/12/18 07:00 lab noted low K+ Assessment: 10/12/18 13:23 withdrawal sx low K+ Plan: continue detox potassium supplement repeat K+
[2018-10-12] MEDS: POTASSIUM CHLORIDE TABS 20 MEQ TABLET.ER (FP) PO SCH (14:17)
[2018-10-12] MEDS: THIAMINE HCL 100 MG TABLET (FP) PO SCH (22:06)
[2018-10-12] MEDS: MELATONIN 5 MG TABLETS PO PRN (22:07)
[2018-10-13] MEDS: chlordiazePOXIDE HCL 25 MG CAPSULE PO SCH ×2 (05:29→10:16)
[2018-10-13] MEDS: sitaGLIPtin PHOSPHATE 50 MG TABLET PO SCH (07:59)
[2018-10-13] MEDS: cloNIDine HCL 0.1 MG TABLET PO SCH ×2 (10:16→22:47)
[2018-10-13] MEDS: POTASSIUM CHLORIDE TABS 20 MEQ TABLET.ER (FP) PO SCH (10:16)
[2018-10-13] MEDS: NIFEdipine E.R. 30 MG TABLET (FP) PO SCH (10:16)
[2018-10-13] MEDS: PRENATAL VITAMINS W/ FOLIC ACID TABLET (FP) PO SCH (10:17)
[2018-10-13] MEDS: NICOTINE 14 MG/24 HOURS TOPICAL PATCH TD SCH (10:17)
--- NOTE | 2018-10-13 11:45 | PN ---
[facility] CIWA - CIWA Score Nausea/Vomitin-No Nausea/No Vomiting Muscle Tremors: 2 Anxiety: 1-Mildly Anxious Agitation: 2 Paroxysmal Sweats: 1-Minimal Palms Moist Orientation: 0-Oriented Tacttile Disturbances: 0-None Auditory Disturbances: 0-None Visual Disturbances: 4-Moderate Hallucinations Headache: 1-Very Mild CIWA-Ar Total Score: 11 S Progress Note (SOAP) Subjective: tremor sweating restlessness Objective: 10/13/18 11:43 Vital Signs Temperature 97.7 F 10/13/18 09:15 Pulse Rate 56 L 10/13/18 09:15 Respiratory Rate 18 10/13/18 09:15 Blood Pressure 114/76 10/13/18 09:15 O2 Sat by Pulse Oximetry (%) Laboratory Last Values WBC 3.7 K/mm3 (4.0-10.0) L 10/12/18 07:00 RBC 4.01 M/mm3 (4.00-5.60) 10/12/18 07:00 Hgb 13.4 GM/dL (11.7-16.9) 10/12/18 07:00 Hct 38.0 % (35.4-49) 10/12/18 07:00 MCV 94.7 fl (80-96) 10/12/18 07:00 MCH 33.4 pg (25.7-33.7) D 10/12/18 07:00 MCHC 35.3 g/dl (32.0-35.9) 10/12/18 07:00 RDW 14.7 % (11.9-15.9) 10/12/18 07:00 Plt Count 186 K/MM3 (134-434) 10/12/18 07:00 MPV 8.2 fl (7.5-11.1) 10/12/18 07:00 Sodium 140 mmol/L (136-145) 10/12/18 07:00 Potassium 3.3 mmol/L (3.5-5.1) L 10/12/18 07:00 Chloride 104 mmol/L (98-107) 10/12/18 07:00 Carbon Dioxide 28 mmol/L (21-32) 10/12/18 07:00 Anion Gap 8 MMOL/L (8-16) 10/12/18 07:00 BUN 14 mg/dL (7-18) 10/12/18 07:00 Creatinine 0.9 mg/dL (0.55-1.3) 10/12/18 07:00 Creat Clearance w eGFR > 60 (>60) 10/12/18 07:00 POC Glucometer 122 UNITS (80-120) 10/13/18 05:28 Random Glucose 131 mg/dL (74-106) H 10/12/18 07:00 Calcium 8.7 mg/dL (8.5-10.1) 10/12/18 07:00 Total Bilirubin 0.5 mg/dL (0.2-1) 10/12/18 07:00 AST 20 U/L (15-37) 10/12/18 07:00 ALT 32 U/L (13-61) 10/12/18 07:00 Alkaline Phosphatase 67 U/L (45-117) 10/12/18 07:00 Total Protein 6.5 g/dl (6.4-8.2) 10/12/18 07:00 Albumin 3.0 g/dl (3.4-5.0) L 10/12/18 07:00 RPR Titer Nonreactive (NONREACTIVE) 10/12/18 07:00 lab noted low K+ 10/13/18 11:44 Assessment: 10/13/18 11:49 withdrawal sx low K+ Plan: continue detox continue K+ supplement repeat K+ adjusting K+ supplement accordingly
[2018-10-13] MEDS: chlordiazePOXIDE 5 MG CAPSULE PO SCH ×2 (18:30→22:46)
[2018-10-13] MEDS: THIAMINE HCL 100 MG TABLET (FP) PO SCH (22:47)
[2018-10-13] MEDS: MELATONIN 5 MG TABLETS PO PRN (22:47)
[2018-10-14] MEDS: chlordiazePOXIDE 5 MG CAPSULE PO SCH ×2 (06:56→10:12)
[2018-10-14] MEDS: sitaGLIPtin PHOSPHATE 50 MG TABLET PO SCH (07:05)
[2018-10-14] MEDS: POTASSIUM CHLORIDE TABS 20 MEQ TABLET.ER (FP) PO SCH (10:11)
[2018-10-14] MEDS: PRENATAL VITAMINS W/ FOLIC ACID TABLET (FP) PO SCH (10:11)
[2018-10-14] MEDS: NIFEdipine E.R. 30 MG TABLET (FP) PO SCH (10:11)
[2018-10-14] MEDS: cloNIDine HCL 0.1 MG TABLET PO SCH ×2 (10:11→22:09)
[2018-10-14] MEDS: NICOTINE 14 MG/24 HOURS TOPICAL PATCH TD SCH (10:12)
--- NOTE | 2018-10-14 17:06 | PN ---
BHS Progress Note (SOAP) Subjective: Tremors, Sweating, Anxious. Objective: PATIENT A & O X 3, OBSERVED AMBULATING ON UNIT. IN NO ACUTE DISTRESS. 10/14/18 17:04 Vital Signs Temperature 96.0 F L 10/14/18 13:14 Pulse Rate 62 10/14/18 13:14 Respiratory Rate 18 10/14/18 13:14 Blood Pressure 126/83 10/14/18 13:14 O2 Sat by Pulse Oximetry (%) Laboratory Tests 10/11/18 10/12/18 10/12/18 15:01 05:24 07:00 WBC 3.7 L RBC 4.01 Hgb 13.4 Hct 38.0 MCV 94.7 MCH 33.4 D MCHC 35.3 RDW 14.7 Plt Count 186 MPV 8.2 Sodium Potassium Chloride Carbon Dioxide Anion Gap BUN Creatinine Creat Clearance w eGFR POC Glucometer 126 110 Random Glucose Calcium Total Bilirubin AST ALT Alkaline Phosphatase Total Protein Albumin RPR Titer 10/12/18 10/12/18 10/13/18 07:00 07:00 05:28 WBC RBC Hgb Hct MCV MCH MCHC RDW Plt Count MPV Sodium 140 Potassium 3.3 L Chloride 104 Carbon Dioxide 28 Anion Gap 8 BUN 14 Creatinine 0.9 Creat Clearance w eGFR > 60 POC Glucometer 122 Random Glucose 131 H Calcium 8.7 Total Bilirubin 0.5 AST 20 ALT 32 Alkaline Phosphatase 67 Total Protein 6.5 Albumin 3.0 L RPR Titer Nonreactive 10/14/18 10/14/18 07:03 15:09 WBC RBC Hgb Hct MCV MCH MCHC RDW Plt Count MPV Sodium Potassium 4.0 Chloride Carbon Dioxide Anion Gap BUN Creatinine Creat Clearance w eGFR POC Glucometer 142 Random Glucose Calcium Total Bilirubin AST ALT Alkaline Phosphatase Total Protein Albumin RPR Titer LABS NOTED. RESULTS OF REPEAT POTASSIUM LEVEL NOTED. POTASSIUM LEVEL NOW NOTED TO BE WITHIN NORMAL RANGE. 10/14/18 17:06 Assessment: 10/14/18 17:05 WITHDRAWAL SYMPTOMS. LEUKOPENIA. Plan: CONTINUE DETOX. INCREASE DAILY PO FLUID INTAKE. PATIENT SCHEDULED FOR D/C TOMORROW.
[2018-10-14] MEDS: chlordiazePOXIDE HCL 10 MG CAPSULE PO SCH ×2 (17:26→22:09)
[2018-10-14] MEDS: THIAMINE HCL 100 MG TABLET (FP) PO SCH (22:09)
[2018-10-14] MEDS: MELATONIN 5 MG TABLETS PO PRN (22:10)
[2018-10-15] MEDS: chlordiazePOXIDE HCL 10 MG CAPSULE PO SCH (05:51)
[2018-10-15 06:22] VITALS: BP 139/83; PULSE 56; TEMP 97.1
[2018-10-15] MEDS: sitaGLIPtin PHOSPHATE 50 MG TABLET PO SCH (08:10)
[2018-10-15] MEDS: cloNIDine HCL 0.1 MG TABLET PO SCH (09:05)
[2018-10-15] MEDS: PRENATAL VITAMINS W/ FOLIC ACID TABLET (FP) PO SCH (09:05)
[2018-10-15] MEDS: NIFEdipine E.R. 30 MG TABLET (FP) PO SCH (09:05)
[2018-10-15] MEDS: NICOTINE 14 MG/24 HOURS TOPICAL PATCH TD SCH (09:05)
[2018-10-15] MEDS: POTASSIUM CHLORIDE TABS 20 MEQ TABLET.ER (FP) PO SCH (09:05)
--- NOTE | 2018-10-15 19:53 | DS ---
[facility] Detox Discharge Summary Admission Date: 10/11/18 Discharge Date: 10/15/18 - History Present History: Alcohol Dependence, Cocaine Dependence Additional Comments: PATIENT [facility] ATT[facility] ([place], [place]) FOR AFTER CARE. PATIENT WILL CONSIDER [facility] ([place], [place]) OR [facility] ([place], [place]) FOR FUTURE REFERENCE. PRESCRIPTIONS FOR DISCHARGE MEDICATIONS SENT TO PATIENT'S PHARMACY ([facility], [place], [place]) FOR AFTERCARE. PATIENT WAS DISCHARGED FROM DETOX UNIT IN STABLE MEDICAL CONDITION. Pertinent Past History: HTN, Type II DM, Dehydration, Leukopenia, Nicotine Dependence, History of Positive PPD. - Physical Exam Results Vital Signs: Vital Signs Temperature 97.1 F L 10/15/18 06:21 Pulse Rate 56 L 10/15/18 06:21 Respiratory Rate 18 10/15/18 06:21 Blood Pressure 139/83 10/15/18 06:21 O2 Sat by Pulse Oximetry (%) Pertinent Admission Physical Exam Findings: WITHDRAWAL SYMPTOMS. Laboratory Tests 10/11/18 10/12/18 10/12/18 15:01 05:24 07:00 WBC 3.7 L RBC 4.01 Hgb 13.4 Hct 38.0 MCV 94.7 MCH 33.4 D MCHC 35.3 RDW 14.7 Plt Count 186 MPV 8.2 Sodium Potassium Chloride Carbon Dioxide Anion Gap BUN Creatinine Creat Clearance w eGFR POC Glucometer 126 110 Random Glucose Calcium Total Bilirubin AST ALT Alkaline Phosphatase Total Protein Albumin RPR Titer 10/12/18 10/12/18 10/13/18 07:00 07:00 05:28 WBC RBC Hgb Hct MCV MCH MCHC RDW Plt Count MPV Sodium 140 Potassium 3.3 L Chloride 104 Carbon Dioxide 28 Anion Gap 8 BUN 14 Creatinine 0.9 Creat Clearance w eGFR > 60 POC Glucometer 122 Random Glucose 131 H Calcium 8.7 Total Bilirubin 0.5 AST 20 ALT 32 Alkaline Phosphatase 67 Total Protein 6.5 Albumin 3.0 L RPR Titer Nonreactive 10/14/18 10/14/18 10/15/18 07:03 15:09 06:57 WBC RBC Hgb Hct MCV MCH MCHC RDW Plt Count MPV Sodium Potassium 4.0 Chloride Carbon Dioxide Anion Gap BUN Creatinine Creat Clearance w eGFR POC Glucometer 142 156 Random Glucose Calcium Total Bilirubin AST ALT Alkaline Phosphatase Total Protein Albumin RPR Titer LABS NOTED. - Treatment Hospital Course: Detox Protocol Followed, Detoxed Safely, Responded well, Discharged Condition Good Patient has Accepted a Rehab Referral to: PT. GOING TO [facility] ([place]WILL CONSIDER REHAB FOR FUTURE - Medication Discharge Medications: Ambulatory Orders Clonidine HCl 0.1 mg PO BID 10/11/18 Nifedipine ER [Procardia Xl -] 30 mg PO DAILY #30 tab.er.24 10/14/18 Sitagliptin Phosphate [Januvia -] 50 mg PO ACBK #30 tablet 10/14/18 - Diagnosis (1) Alcohol dependence with uncomplicated withdrawal Status: Acute (2) At risk for dehydration due to poor fluid intake Status: Acute (3) Leukopenia Status: Acute Qualifiers: Leukopenia type: unspecified Qualified Code(s): D72.819 - Decreased white blood cell count, unspecified (4) Nicotine dependence Status: Acute Qualifiers: Nicotine product type: cigarettes Substance use status: in withdrawal Qualified Code(s): F17.213 - Nicotine dependence, cigarettes, with withdrawal (5) Diabetes mellitus Status: Chronic Qualifiers: Diabetes mellitus type: type 2 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
== END 2018-10-15 08:45 | disposition home or self-care (01) | DRG 774 ==
LOC: YASAS 11:07 → Y3N 16:35
PROVIDERS: ADMIT Surgery; ATTEND Surgery
PROC: HZ2ZZZZ Detoxification Services for Substance Abuse Treatment (ICD-10-PCS; principal; 2018-10-11)
DX: F10.230 Alcohol dependence with withdrawal, uncomplicated (principal); F14.20 Cocaine dependence, uncomplicated; F17.213 Nicotine dependence, cigarettes, with withdrawal; D72.819 Decreased white blood cell count, unspecified; I10 Essential (primary) hypertension; E11.9 Type 2 diabetes mellitus without complications; Z79.84 Long term (current) use of oral hypoglycemic drugs; R76.11 Nonspecific reaction to tuberculin skin test without active tuberculosis; Z91.89 Other specified personal risk factors, not elsewhere classified
CPT/HCPCS: 36415; 80053; 82962; 84132; 85027; 86593; J0735

== ENCOUNTER 2018-11-04 11:39 | Inpatient (IN) | payer OTHER ==
[2018-11-04 12:56] VITALS: BMI 25.0
--- NOTE | 2018-11-04 14:59 | HP ---
CIWA Score Nausea/Vomitin-No Nausea/No Vomiting Muscle Tremors: 2 Anxiety: 4-Mod. Anxious/Guarded Agitation: 0-Normal Activity Paroxysmal Sweats: No Perspiration Orientation: 0-Oriented Tacttile Disturbances: 0-None Auditory Disturbances: 0-None Visual Disturbances: 0-None Headache: 0-None Present CIWA-Ar Total Score: 6 - Admission Criteria OASAS Guidelines: Admission for Medically Managed Detox: Requires at least one of the followin. CIWA greater than 12 2. Seizures within the past 24 hours 3. Delirium tremens within the past 24 hours 4. Hallucinations within the past 24 hours 5. Acute intervention needed for co occurring medical disorder 6. Acute intervention needed for co occurring psychiatric disorder 7. Severe withdrawal that cannot be handled at a lower level of care (continued vomiting, continued diarrhea, abnormal vital signs) requiring intravenous medication and/or fluids 8. Patient presents the following: None of the above Admission Criteria Met: Admission criteria not met Admission ROS S - HPI Allergies/Adverse Reactions: Allergies Allergy/AdvReac Type Severity Reaction Status Date / Time No Known Drug Allergies Allergy Verified 11/04/18 14:05 History of Present Illness: pt here requesting detox from etoh use , reports 3-4 pints/day , starts drinking around 11 am , relapse after leaving this facility , current symptoms as above, reports 2 d ago latest use , was at [facility] yesterday , was given Librium and anti- htn meds , has d/c paperwork dated 11/04/18 . tobacco ; 1/2 ppd PMHX : HTN, DM 2 PSHX ; umbil hernia 5 years ago . 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 Reference #: [id number] There are no results for the search terms that you entered. Exam Limitations: No Limitations - Ebola screening Have you traveled outside of the country in the last 21 days: No Have you had contact with anyone from an Ebola affected area: No Have you been sick,other than usual withdrawal symptoms: No Do you have a fever: No - Review of Systems Constitutional: See HPI EENT: reports: Other (reading glasses , denies dysphagia) Respiratory: reports: No Symptoms reported Cardiac: reports: No Symptoms Reported GI: reports: No Symptoms Reported : reports: No Symptoms Reported Musculoskeletal: reports: No Symptoms Reported Integumentary: reports: No Symptoms Reported Neuro: reports: No Symptoms reported Endocrine: reports: See HPI Psychiatric: reports: Orientated x3, Anxious Patient History - Patient Medical History Hx Anemia: No Hx Asthma: No Hx Chronic Obstructive Pulmonary Disease (COPD): No Hx Cancer: No Hx Cardiac Disorders: No Hx Congestive Heart Failure: No Hx Hypertension: Yes Hx Hypercholesterolemia: No Hx Pacemaker: No HX Cerebrovascular Accident: No Hx Seizures: No Hx Dementia: No Hx Diabetes: Yes (NIDDM) Hx Gastrointestinal Disorders: No Hx Liver Disease: No Hx Genitourinary Disorders: No Hx Sexually Transmitted Disorders: No Hx Renal Disease (ESRD): No Hx Thyroid Disease: No Hx Human Immunodeficiency Virus (HIV): No (last tested one year ago ) Hx Hepatitis C: No Hx Depression: No Hx Suicide Attempt: No Hx Bipolar Disorder: No Hx Schizophrenia: No - Patient Surgical History Past Surgical History: Yes Hx Neurologic Surgery: No Hx Cataract Extraction: No Hx Cardiac Surgery: No Hx Lung Surgery: No Hx Breast Surgery: No Hx Breast Biopsy: No Hx Abdominal Surgery: No Hx Appendectomy: No Hx Cholecystectomy: No Hx Genitourinary Surgery: No Hx Section: No Hx Orthopedic Surgery: No Other Surgical History: Umbilical hernia repair-2013 Anesthesia Reaction: No - PPD History Previous Implant?: Yes Documented Results: Positive w/o proof Implanted On Prior [facility] Admission?: Yes Results: CXR(-) - Smoking Cessation Smoking history: Current every day smoker Have you smoked in the past 12 months: Yes Aproximately how many cigarettes per day: 20 Cigars Per Day: 0 Hx Chewing Tobacco Use: No Initiated information on smoking cessation: No - Substances Abused Crack Route: Smoking Frequency: Daily Amount used: $40 Age of first use: 16 Date of Last Use: 10/26/18 Alcohol-vodka Route: Oral Frequency: Daily Amount used: 4 pts. Age of first use: 10 Date of Last Use: 11/03/18 Family Disease History - Family Disease History Family Disease History: Diabetes: Grandparent (MGM), CA: Father (d . 80's cancer unknown type ), Other: Mother (A & W ), Brother (3, A & W ), Sister (2 , A & W ), Son (1 , A & W ) Admission Physical Exam BHS - Vital Signs Vital Signs: Vital Signs - 24 hr 11/04/18 12:40 Temperature 98.9 F Pulse Rate 91 H Respiratory 20 Rate Blood Pressure 156/103 H - Physical General Appearance: Yes: Disheveled, Mild Distress, Anxious HEENTM: Yes: EOMI, Hearing grossly Normal, Normocephalic, Normal Voice Respiratory: Yes: Chest Non-Tender, Lungs Clear, Normal Breath Sounds Neck: Yes: No masses,lesions,Nodules, Trachea in good position Cardiology: Yes: Regular Rhythm, Regular Rate, S1, S2, Tachycardia Abdominal: Yes: Normal Bowel Sounds, Non Tender, Soft Genitourinary: Yes: Within Normal Limits Back: Yes: Normal Inspection Musculoskeletal: Yes: full range of Motion, Gait Steady Extremities: Yes: Normal Capillary Refill, Normal Range of Motion, Non-Tender, Tremors Neurological: Yes: Motor Strength 5/5 Integumentary: Yes: Normal Color - Diagnostic (1) Alcohol dependence with uncomplicated withdrawal Current Visit: No Status: Acute (2) Nicotine dependence Current Visit: No Status: Acute Qualifiers: Nicotine product type: cigarettes Substance use status: in withdrawal Qualified Code(s): F17.213 - Nicotine dependence, cigarettes, with withdrawal [facility] Breath Alcohol Content Breath Alcohol Content: 0 Urine Drug Screen - Results Drug Screen Negative: No Urine Drug Screen Results: BZO-Benzodiazepines Inpatient Rehab Admission - Rehab Decision to Admit Inpatient rehab admission?: No
[2018-11-04] MEDS ORDERED: MAGNESIUM HYDROX 2400MG/30ML ORAL SUSPENSION 30 ML CUP PO PRN (15:06)
[2018-11-04] MEDS ORDERED: MENTHOL/PHENOL 1 EACH UD MM PRN (15:06)
[2018-11-04] MEDS ORDERED: ACETAMINOPHEN 325 MG TABLET (FP) PO PRN (15:06)
[2018-11-04] MEDS ORDERED: chlordiazePOXIDE HCL 25 MG CAPSULE PO PRN (15:06)
[2018-11-04] MEDS ORDERED: MAG HYDROX/AL HYDROX/SIMETH 30 ML UNIT-DOSE CUP PO PRN (15:06)
[2018-11-04] MEDS ORDERED: MAGNESIUM CITRATE 300 ML BOTTLE PO PRN (15:06)
[2018-11-04] MEDS ORDERED: NICOTINE POLACRILEX 2 MG GUM BUC PRN (15:06)
[2018-11-04] MEDS ORDERED: IBUPROFEN 400 MG TABLET (FP) PO PRN (15:06)
[2018-11-04] MEDS: chlordiazePOXIDE HCL 25 MG CAPSULE PO SCH ×2 (16:51→22:40)
[2018-11-04] MEDS: INSULIN SLIDING SCALE (NOVOLOG) 1 VIAL SQ SCH (16:53)
[2018-11-04] MEDS ORDERED: cloNIDine HCL 0.1 MG TABLET PO ONE (20:26)
[2018-11-04] MEDS: THIAMINE HCL 100 MG TABLET (FP) PO SCH (22:25)
[2018-11-04] MEDS: MELATONIN 5 MG TABLETS PO PRN (22:26)
[2018-11-05] MEDS: chlordiazePOXIDE HCL 25 MG CAPSULE PO SCH ×4 (06:00→22:09)
[2018-11-05] MEDS: INSULIN SLIDING SCALE (NOVOLOG) 1 VIAL SQ SCH ×3 (06:11→22:09)
[2018-11-05] MEDS: sitaGLIPtin PHOSPHATE 50 MG TABLET PO SCH (06:11)
[2018-11-05 10:28] LABS: ALBUMIN 3.6 g/dl (3.4-5.0); ALK PHOS 105 U/L (45-117); ANION GAP 9 MMOL/L (8-16); BILIRUBIN,TOTAL 1.2 mg/dL (0.2-1); BLOOD UREA NITROGEN 15 mg/dL (7-18); CHLORIDE 105 mmol/L (98-107); CO2 25 mmol/L (21-32); CREATININE 1.2 mg/dL (0.55-1.3); GLUCOSE,RANDOM 115 mg/dL (74-106); POTASSIUM 3.8 mmol/L (3.5-5.1); SGOT/AST 202 U/L (15-37); SGPT/ALT 108 U/L (13-61); SODIUM 138 mmol/L (136-145)
[2018-11-05 10:50] LABS: HEMATOCRIT 46.5 % (35.4-49); HEMOGLOBIN 16.1 GM/dL (11.7-16.9); MCH 33.5 pg (25.7-33.7); MCHC 34.6 g/dl (32.0-35.9); MEAN CELL VOLUME 96.9 fl (80-96); PLATELET COUNT 234 K/MM3 (134-434); RDW 14.8 % (11.9-15.9); WHITE BLOOD COUNT 4.8 K/mm3 (4.0-10.0)
[2018-11-05] MEDS: NIFEdipine E.R. 30 MG TABLET (FP) PO SCH (10:51)
[2018-11-05] MEDS: PRENATAL VITAMINS W/ FOLIC ACID TABLET (FP) PO SCH (10:51)
--- NOTE | 2018-11-05 14:33 | PN ---
S CIWA - CIWA Score Nausea/Vomitin-No Nausea/No Vomiting Muscle Tremors: 2 Anxiety: 2 Agitation: 2 Paroxysmal Sweats: 2 Orientation: 0-Oriented Tacttile Disturbances: 0-None Auditory Disturbances: 0-None Visual Disturbances: 0-None Headache: 0-None Present CIWA-Ar Total Score: 8 S Progress Note (SOAP) Subjective: sweat Objective: 11/05/18 14:36 In bed, A & O x 3 Not in acute distress Vital Signs Temperature 98.2 F 11/05/18 13:57 Pulse Rate 62 11/05/18 13:57 Respiratory Rate 18 11/05/18 13:57 Blood Pressure 143/78 11/05/18 13:57 O2 Sat by Pulse Oximetry (%) Laboratory Last Values WBC 4.8 K/mm3 (4.0-10.0) 11/05/18 06:00 RBC 4.80 M/mm3 (4.00-5.60) 11/05/18 06:00 Hgb 16.1 GM/dL (11.7-16.9) 11/05/18 06:00 Hct 46.5 % (35.4-49) D 11/05/18 06:00 MCV 96.9 fl (80-96) H 11/05/18 06:00 MCH 33.5 pg (25.7-33.7) 11/05/18 06:00 MCHC 34.6 g/dl (32.0-35.9) 11/05/18 06:00 RDW 14.8 % (11.9-15.9) 11/05/18 06:00 Plt Count 234 K/MM3 (134-434) D 11/05/18 06:00 MPV 9.0 fl (7.5-11.1) 11/05/18 06:00 Sodium 138 mmol/L (136-145) 11/05/18 06:00 Potassium 3.8 mmol/L (3.5-5.1) 11/05/18 06:00 Chloride 105 mmol/L (98-107) 11/05/18 06:00 Carbon Dioxide 25 mmol/L (21-32) 11/05/18 06:00 Anion Gap 9 MMOL/L (8-16) 11/05/18 06:00 BUN 15 mg/dL (7-18) 11/05/18 06:00 Creatinine 1.2 mg/dL (0.55-1.3) 11/05/18 06:00 Creat Clearance w eGFR > 60 (>60) 11/05/18 06:00 POC Glucometer 146 UNITS (80-120) 11/05/18 06:09 Random Glucose 115 mg/dL (74-106) H 11/05/18 06:00 Calcium 9.0 mg/dL (8.5-10.1) 11/05/18 06:00 Total Bilirubin 1.2 mg/dL (0.2-1) H 11/05/18 06:00 AST 202 U/L (15-37) H 11/05/18 06:00 ALT 108 U/L (13-61) H 11/05/18 06:00 Alkaline Phosphatase 105 U/L (45-117) 11/05/18 06:00 Total Protein 8.0 g/dl (6.4-8.2) 11/05/18 06:00 Albumin 3.6 g/dl (3.4-5.0) 11/05/18 06:00 RPR Titer Nonreactive (NONREACTIVE) 11/05/18 06:00 Random glucose elavated - pt has DM II Assessment: 11/05/18 14:37 withdrawal sx DM II Plan: continue detox continue anti-glycemic agent continue BGM
[2018-11-05] MEDS ORDERED: INSULIN SLIDING SCALE (NOVOLOG) 1 VIAL SQ SCH (16:30)
[2018-11-05] MEDS: MELATONIN 5 MG TABLETS PO PRN (22:09)
[2018-11-05] MEDS: THIAMINE HCL 100 MG TABLET (FP) PO SCH (22:09)
[2018-11-06] MEDS: chlordiazePOXIDE HCL 25 MG CAPSULE PO SCH ×2 (05:47→10:26)
[2018-11-06] MEDS: INSULIN SLIDING SCALE (NOVOLOG) 1 VIAL SQ SCH ×4 (06:44→22:20)
[2018-11-06] MEDS: sitaGLIPtin PHOSPHATE 50 MG TABLET PO SCH (06:45)
[2018-11-06] MEDS ORDERED: hydrOXYzine PAMOATE 50 MG CAPSULE (FP) PO PRN (10:02)
[2018-11-06] MEDS: NIFEdipine E.R. 30 MG TABLET (FP) PO SCH (10:26)
[2018-11-06] MEDS: PRENATAL VITAMINS W/ FOLIC ACID TABLET (FP) PO SCH (10:26)
--- NOTE | 2018-11-06 14:16 | PN ---
S CIWA - CIWA Score Nausea/Vomitin Muscle Tremors: 3 Anxiety: 3 Agitation: 3 Paroxysmal Sweats: 3 Orientation: 0-Oriented Tacttile Disturbances: 0-None Auditory Disturbances: 0-None Visual Disturbances: 0-None Headache: 0-None Present CIWA-Ar Total Score: 14 BHS Progress Note (SOAP) Subjective: Feeling tired, interrupted sleep Objective: 11/06/18 14:12 Last Vital Signs Temp Pulse Resp BP Pulse Ox 97.9 F 57 L 16 140/76 11/06/18 10:00 11/06/18 10:00 11/06/18 10:00 11/06/18 10:00 Laboratory Tests 11/04/18 11/04/18 11/05/18 14:27 16:50 06:00 WBC 4.8 RBC 4.80 Hgb 16.1 Hct 46.5 D MCV 96.9 H MCH 33.5 MCHC 34.6 RDW 14.8 Plt Count 234 D MPV 9.0 Sodium Potassium Chloride Carbon Dioxide Anion Gap BUN Creatinine Creat Clearance w eGFR POC Glucometer 147 198 Random Glucose Calcium Total Bilirubin AST ALT Alkaline Phosphatase Total Protein Albumin RPR Titer 11/05/18 11/05/18 11/05/18 06:00 06:00 06:09 WBC RBC Hgb Hct MCV MCH MCHC RDW Plt Count MPV Sodium 138 Potassium 3.8 Chloride 105 Carbon Dioxide 25 Anion Gap 9 BUN 15 Creatinine 1.2 Creat Clearance w eGFR > 60 POC Glucometer 146 Random Glucose 115 H Calcium 9.0 Total Bilirubin 1.2 H AST 202 H ALT 108 H Alkaline Phosphatase 105 Total Protein 8.0 Albumin 3.6 RPR Titer Nonreactive 11/05/18 11/05/18 11/06/18 16:29 20:35 05:50 WBC RBC Hgb Hct MCV MCH MCHC RDW Plt Count MPV Sodium Potassium Chloride Carbon Dioxide Anion Gap BUN Creatinine Creat Clearance w eGFR POC Glucometer 123 179 178 Random Glucose Calcium Total Bilirubin AST ALT Alkaline Phosphatase Total Protein Albumin RPR Titer 11/06/18 11:23 WBC RBC Hgb Hct MCV MCH MCHC RDW Plt Count MPV Sodium Potassium Chloride Carbon Dioxide Anion Gap BUN Creatinine Creat Clearance w eGFR POC Glucometer 179 Random Glucose Calcium Total Bilirubin AST ALT Alkaline Phosphatase Total Protein Albumin RPR Titer Labs reviewed: increased glucose, elevated AST/ALT Assessment: 11/06/18 14:14 Withdrawal symptoms Noted with hyperglycemia and elevated LFTs (AST/ALT) Plan: Continue detox Encouraged PO water hydration Hyperglycemia secondary to DMT2: continue present regimen, encourage adherence to diabetic diet Elevated LFTs: most likely related to alcoholism, repeat AST and ALT
[2018-11-06] MEDS ORDERED: INSULIN (NOVOLOG) ASPART 100 UNITS/ML 10ML VIAL ONE ×2 (17:28→22:21)
[2018-11-06] MEDS: chlordiazePOXIDE 5 MG CAPSULE PO SCH ×2 (17:28→22:19)
[2018-11-06] MEDS: THIAMINE HCL 100 MG TABLET (FP) PO SCH (22:19)
[2018-11-07] MEDS: chlordiazePOXIDE 5 MG CAPSULE PO SCH ×2 (06:05→10:16)
[2018-11-07] MEDS: INSULIN SLIDING SCALE (NOVOLOG) 1 VIAL SQ SCH ×4 (06:37→22:30)
[2018-11-07] MEDS: sitaGLIPtin PHOSPHATE 50 MG TABLET PO SCH (06:39)
[2018-11-07 09:53] LABS: SGOT/AST 39 U/L (15-37); SGPT/ALT 58 U/L (13-61)
[2018-11-07] MEDS: PRENATAL VITAMINS W/ FOLIC ACID TABLET (FP) PO SCH (10:16)
[2018-11-07] MEDS: NIFEdipine E.R. 30 MG TABLET (FP) PO SCH (10:16)
--- NOTE | 2018-11-07 12:18 | PN ---
S Progress Note (SOAP) Subjective: Patient denies current Withdrawal / Detox symptoms and reports that he feels well overall. Objective: PATIENT A & O X 2 (UNCERTAIN ABOUT CURRENT DAY / DATE). PATIENT OBSERVED AMBULATING ON UNIT. IN NO ACUTE DISTRESS. 11/07/18 12:17 Vital Signs Temperature 98.3 F 11/07/18 09:25 Pulse Rate 72 11/07/18 09:25 Respiratory Rate 18 11/07/18 09:25 Blood Pressure 159/99 11/07/18 09:25 O2 Sat by Pulse Oximetry (%) Laboratory Tests 11/04/18 11/04/18 11/05/18 14:27 16:50 06:00 WBC 4.8 RBC 4.80 Hgb 16.1 Hct 46.5 D MCV 96.9 H MCH 33.5 MCHC 34.6 RDW 14.8 Plt Count 234 D MPV 9.0 Sodium Potassium Chloride Carbon Dioxide Anion Gap BUN Creatinine Creat Clearance w eGFR POC Glucometer 147 198 Random Glucose Calcium Total Bilirubin AST ALT Alkaline Phosphatase Total Protein Albumin RPR Titer 11/05/18 11/05/18 11/05/18 06:00 06:00 06:09 WBC RBC Hgb Hct MCV MCH MCHC RDW Plt Count MPV Sodium 138 Potassium 3.8 Chloride 105 Carbon Dioxide 25 Anion Gap 9 BUN 15 Creatinine 1.2 Creat Clearance w eGFR > 60 POC Glucometer 146 Random Glucose 115 H Calcium 9.0 Total Bilirubin 1.2 H AST 202 H ALT 108 H Alkaline Phosphatase 105 Total Protein 8.0 Albumin 3.6 RPR Titer Nonreactive 11/05/18 11/05/18 11/06/18 16:29 20:35 05:50 WBC RBC Hgb Hct MCV MCH MCHC RDW Plt Count MPV Sodium Potassium Chloride Carbon Dioxide Anion Gap BUN Creatinine Creat Clearance w eGFR POC Glucometer 123 179 178 Random Glucose Calcium Total Bilirubin AST ALT Alkaline Phosphatase Total Protein Albumin RPR Titer 11/06/18 11/06/18 11/06/18 11:23 16:51 22:18 WBC RBC Hgb Hct MCV MCH MCHC RDW Plt Count MPV Sodium Potassium Chloride Carbon Dioxide Anion Gap BUN Creatinine Creat Clearance w eGFR POC Glucometer 179 209 204 Random Glucose Calcium Total Bilirubin AST ALT Alkaline Phosphatase Total Protein Albumin RPR Titer 11/07/18 11/07/18 11/07/18 06:35 07:00 11:22 WBC RBC Hgb Hct MCV MCH MCHC RDW Plt Count MPV Sodium Potassium Chloride Carbon Dioxide Anion Gap BUN Creatinine Creat Clearance w eGFR POC Glucometer 147 155 Random Glucose Calcium Total Bilirubin AST 39 H ALT 58 Alkaline Phosphatase Total Protein Albumin RPR Titer LABS NOTED. RESULTS OF REPEAT AST AND ALT NOTED. Assessment: 11/07/18 12:17 WITHDRAWAL SYMPTOMS. Plan: CONTINUE DETOX. INCREASE DAILY PO FLUID INTAKE.
[2018-11-07] MEDS: chlordiazePOXIDE HCL 10 MG CAPSULE PO SCH ×2 (18:34→22:28)
[2018-11-07] MEDS: THIAMINE HCL 100 MG TABLET (FP) PO SCH (22:28)
[2018-11-08] MEDS: chlordiazePOXIDE HCL 10 MG CAPSULE PO SCH ×2 (05:49→10:24)
[2018-11-08] MEDS: sitaGLIPtin PHOSPHATE 50 MG TABLET PO SCH (06:10)
[2018-11-08] MEDS: INSULIN SLIDING SCALE (NOVOLOG) 1 VIAL SQ SCH ×2 (07:45→11:36)
--- NOTE | 2018-11-08 08:38 | DS ---
[facility] Detox Discharge Summary Admission Date: 11/04/18 Discharge Date: 11/08/18 - History Present History: Alcohol Dependence, Cocaine Dependence - Physical Exam Results Vital Signs: Vital Signs Temperature 97.7 F 11/08/18 06:00 Pulse Rate 61 11/08/18 06:00 Respiratory Rate 18 11/08/18 06:00 Blood Pressure 126/66 11/08/18 06:00 O2 Sat by Pulse Oximetry (%) - Treatment Hospital Course: Detox Protocol Followed, Detoxed Safely, Responded well, Discharged Condition Good, Rehab Referral Accepted - Medication Discharge Medications: Ambulatory Orders Clonidine HCl 0.1 mg PO BID 10/11/18 Nifedipine ER [Procardia Xl -] 30 mg PO DAILY #30 tab.er.24 10/14/18 Sitagliptin Phosphate [Januvia -] 50 mg PO ACBK #30 tablet 10/14/18 - Diagnosis (1) Alcohol dependence with uncomplicated withdrawal Current Visit: Yes Status: Chronic (2) Nicotine dependence Current Visit: Yes Status: Acute Qualifiers: Nicotine product type: cigarettes Substance use status: uncomplicated Qualified Code(s): F17.210 - Nicotine dependence, cigarettes, uncomplicated (3) Cocaine dependence Current Visit: Yes Status: Chronic Qualifiers: Substance use status: uncomplicated Qualified Code(s): F14.20 - Cocaine dependence, uncomplicated (4) Depression Current Visit: No Status: Chronic Qualifiers: Depression Type: unspecified Qualified Code(s): F32.9 - Major depressive disorder, single episode, unspecified (5) Diabetes mellitus Current Visit: Yes Status: Chronic Qualifiers: Diabetes mellitus type: type 2 Diabetes mellitus joint terminal attack controller insulin use: without joint terminal attack controller use Diabetes mellitus complication status: without complication Qualified Code(s): E11.9 - Type 2 diabetes mellitus without complications (6) History of positive PPD Current Visit: No Status: Chronic (7) Hypertension Current Visit: Yes Status: Chronic Qualifiers: Hypertension type: essential hypertension Qualified Code(s): I10 - Essential (primary) hypertension (8) Umbilical hernia Current Visit: No Status: Chronic (9) Substance induced mood disorder Current Visit: No Status: Suspected - AMA Did Patient Leave Against Medical Advice: No ([facility] )
[2018-11-08] MEDS: PRENATAL VITAMINS W/ FOLIC ACID TABLET (FP) PO SCH (10:24)
[2018-11-08] MEDS: NIFEdipine E.R. 30 MG TABLET (FP) PO SCH (10:24)
[2018-11-08 17:27] VITALS: BP 148/95; PULSE 75; TEMP 96.1
== END 2018-11-08 18:16 | disposition home or self-care (01) | DRG 774 ==
LOC: YASAS 11:39 → Y6N 15:30
PROVIDERS: ADMIT Surgery; ATTEND Surgery
PROC: HZ2ZZZZ Detoxification Services for Substance Abuse Treatment (ICD-10-PCS; principal; 2018-11-04)
DX: F10.230 Alcohol dependence with withdrawal, uncomplicated (principal); F14.20 Cocaine dependence, uncomplicated; F17.210 Nicotine dependence, cigarettes, uncomplicated; F19.24 Other psychoactive substance dependence with psychoactive substance-induced mood disorder; F32.9 Major depressive disorder, single episode, unspecified; I10 Essential (primary) hypertension; E11.9 Type 2 diabetes mellitus without complications; Z79.84 Long term (current) use of oral hypoglycemic drugs; K42.9 Umbilical hernia without obstruction or gangrene; R76.11 Nonspecific reaction to tuberculin skin test without active tuberculosis
CPT/HCPCS: 36415; 80053; 82962; 84450; 84460; 85027; 86593; J0735

== ENCOUNTER 2024-05-25 12:16 | Inpatient (IN) | payer OTHER ==
[2024-05-25 13:33] VITALS: BMI 26.3
[2024-05-25] MEDS ORDERED: LOPERAMIDE HCL 2 MG CAPSULE PO PRN (14:21)
[2024-05-25] MEDS ORDERED: BENZONATATE 200 MG CAPSULE PO PRN (14:21)
[2024-05-25] MEDS ORDERED: NICOTINE POLACRILEX 2 MG GUM BUC PRN (14:21)
[2024-05-25] MEDS ORDERED: BISMUTH SUBSALICYLATE 524 MG/30 ML PO PRN (14:21)
[2024-05-25] MEDS ORDERED: NICOTINE POLACRILEX 2 MG LOZENGE BC PRN (14:21)
[2024-05-25] MEDS ORDERED: IBUPROFEN 400 MG TABLET (FP) PO PRN (14:21)
[2024-05-25] MEDS ORDERED: ACETAMINOPHEN 325 MG TABLET (FP) PO PRN (14:21)
[2024-05-25] MEDS ORDERED: guaiFENesin 600 MG TABLET.ER (FP) PO PRN (14:21)
[2024-05-25] MEDS ORDERED: NALOXONE (NARCAN) HCL 4 MG/0.1 ML SPRAY NS PRN (14:21)
[2024-05-25] MEDS ORDERED: ONDANSETRON *ODT* 4 MG TABLET SL PRN (14:21)
[2024-05-25] MEDS ORDERED: BENZOCAINE/MENTHOL (CHLORASEPTIC ) LOZENGE MM PRN (14:21)
[2024-05-25] MEDS ORDERED: MAGNESIUM HYDROX 2400MG/30ML ORAL SUSPENSION 30 ML CUP PO PRN (14:21)
[2024-05-25] MEDS ORDERED: IBUPROFEN 600 MG TABLET (FP) PO PRN (14:21)
[2024-05-25] MEDS ORDERED: MAG HYDROX/AL HYDROX/SIMETH 30 ML UNIT-DOSE CUP PO PRN (14:21)
[2024-05-25] MEDS ORDERED: POLYETHYLENE GLYCOL (HEALTHYLAX) 3350 17 GM PACKET PO PRN (14:21)
[2024-05-25] MEDS ORDERED: DICYCLOMINE HCL 10 MG CAPSULE PO PRN (14:21)
[2024-05-25] MEDS ORDERED: NALOXONE HCL 0.4 MG/ML VIAL IM PRN (14:21)
[2024-05-25] MEDS ORDERED: METHOCARBAMOL 500 MG TABLET PO PRN (14:21)
[2024-05-25] MEDS ORDERED: amLODIPine BESYLATE 5 MG TABLET (FP) ONE (14:59)
[2024-05-25] MEDS ORDERED: LISINOPRIL 10 MG TABLET ONE (14:59)
[2024-05-25] MEDS ORDERED: PRENATAL VITAMINS W/ FOLIC ACID TABLET (FP) PO ONE (14:59)
[2024-05-25] MEDS: LISINOPRIL 20 MG TABLET PO SCH (15:03)
[2024-05-25] MEDS: amLODIPine BESYLATE 10 MG TABLET (FP) PO SCH (15:03)
[2024-05-25] MEDS: PRENATAL VITAMINS W/ FOLIC ACID TABLET (FP) PO SCH (15:03)
[2024-05-25] MEDS ORDERED: glipiZIDE-XL 5 MG TAB.ER.24 PO SCH (16:30)
[2024-05-25] MEDS: cloNIDine HCL 0.1 MG TABLET PO ONE (17:40)
[2024-05-25] MEDS: MELATONIN 5 MG TABLETS PO SCH (21:07)
[2024-05-25] MEDS: THIAMINE 100 MG TABLET PO SCH (21:07)
[2024-05-25] MEDS: glipiZIDE-XL 5 MG TAB.ER.24 PO SCH (21:08)
[2024-05-26 10:24] LABS: HEMATOCRIT 43.4 % (35.4-49); HEMOGLOBIN 14.8 GM/dL (11.7-16.9); MEAN CELL VOLUME 94.1 fl (80-96); MEAN PLT VOLUME 8.8 fl (7.5-11.1); PLATELET COUNT 302 10^3/uL (134-434); RBC 4.62 M/mm3 (4.00-5.60); RDW 13.9 % (11.9-15.9); WHITE BLOOD COUNT 5.2 K/mm3 (4.0-10.0)
[2024-05-26 10:25] LABS: POTASSIUM 3.6 mmol/L (3.5-5.1)
[2024-05-26 10:27] LABS: CALCIUM 9.3 mg/dL (8.5-10.1)
[2024-05-26 10:28] LABS: ALBUMIN 3.2 g/dl (3.4-5.0)
[2024-05-26 10:31] LABS: CREATININE 1.6 mg/dL (0.55-1.3)
[2024-05-26 10:33] LABS: TOT PROT 7.1 g/dl (6.4-8.2)
[2024-05-26 10:59] LABS: BILIRUBIN,TOTAL 0.7 mg/dL (0.2-1)
[2024-05-26] MEDS: METOPROLOL TARTRATE 25 MG TABLET (FP) PO ONE (14:42)
[2024-05-26] MEDS: chlordiazePOXIDE HCL 25 MG CAPSULE PO PRN (19:03)
[2024-05-26] MEDS: LACTULOSE 20 GM/30 ML UDC (FOR ORAL USE ONLY) PO SCH (22:35)
[2024-05-26] MEDS: chlordiazePOXIDE HCL 25 MG CAPSULE PO SCH (22:35)
[2024-05-26] MEDS: ATORVASTATIN CA 10 MG TABLET (FP) PO SCH (22:35)
[2024-05-27 10:26] LABS: POTASSIUM 4.4 mmol/L (3.5-5.1)
[2024-05-27 10:37] LABS: ALBUMIN 3.2 g/dl (3.4-5.0); BLOOD UREA NITROGEN 24.8 mg/dL (7-18)
[2024-05-27 10:39] LABS: CALCIUM 9.9 mg/dL (8.5-10.1)
[2024-05-27 10:40] LABS: CREATININE 1.4 mg/dL (0.55-1.3)
[2024-05-27] MEDS: hydrOXYzine PAMOATE 25 MG CAPSULE (FP) PO PRN (13:08)
[2024-05-27] MEDS: cloNIDine HCL 0.1 MG TABLET PO PRN (13:38)
[2024-05-28] MEDS: chlordiazePOXIDE HCL 25 MG CAPSULE PO SCH (05:45)
[2024-05-28] MEDS: cloNIDine HCL 0.1 MG TABLET PO ONE (15:07)
[2024-05-28] MEDS: cloNIDine HCL 0.1 MG TABLET PO PRN (19:08)
[2024-05-29] MEDS ORDERED: chlordiazePOXIDE HCL 10 MG CAPSULE PO PRN
[2024-05-29] MEDS: chlordiazePOXIDE HCL 10 MG CAPSULE PO SCH (05:27)
[2024-05-30] MEDS: chlordiazePOXIDE HCL 10 MG CAPSULE PO SCH (05:49)
[2024-05-30 16:56] VITALS: RESP 18
[2024-05-30] MEDS: METOPROLOL TARTRATE 25 MG TABLET (FP) PO ONE (17:23)
[2024-05-31] MEDS: chlordiazePOXIDE HCL 10 MG CAPSULE PO ONE (05:59)
[2024-05-31 09:14] VITALS: BP 149/99; PULSE 69; TEMP 98
== END 2024-05-31 10:29 | disposition other institution (70) | DRG 774 ==
LOC: YASAS 12:16 → Y3N 14:45
PROVIDERS: ADMIT Allergy & Immunology; ATTEND Surgery
PROC: HZ2ZZZZ Detoxification Services for Substance Abuse Treatment (ICD-10-PCS; principal; 2024-05-25)
DX: F10.230 Alcohol dependence with withdrawal, uncomplicated (principal); F14.20 Cocaine dependence, uncomplicated; F17.210 Nicotine dependence, cigarettes, uncomplicated; F19.24 Other psychoactive substance dependence with psychoactive substance-induced mood disorder; F32.A Depression, unspecified; F41.9 Anxiety disorder, unspecified; E72.20 Disorder of urea cycle metabolism, unspecified; I10 Essential (primary) hypertension; E11.9 Type 2 diabetes mellitus without complications; Z79.84 Long term (current) use of oral hypoglycemic drugs; R94.31 Abnormal electrocardiogram [ECG] [EKG]
CPT/HCPCS: 36415; 71045-TC-FY; 80053; 80069; 80305; 80307; 82140; 82962; 83036; 85027; 86780; 93005; 93010